=== PATIENT | female | born 1970 | race Caucasian/White ===

== ENCOUNTER → 2016-11-05 | Outpatient (CLI) | payer OTHER ==
[~2016-11-05] MED LIST: ALBU8.5H2 IH; AMLO5TAB2; BUDE10.2 IH; CYCL10TA9 PO; IBUP-15 PO; LEVA0.6320 IH; LEVO500T80; LEVO5TAB2 PO; METH4TAB PO; PANT40TA3; PNT40TEC PO; RT-ALBUINH; SUMA100T2 PO; [UNRECOGNIZED DRUG - OTHER]
--- NOTE | 2016-11-05 13:33 | Diagnostic Imaging Report ---
PROCEDURE: MR imaging cervical spine without contrast. TECHNIQUE: Multiplanar, multisequence MR imaging of the cervical spine was performed without contrast. INDICATION: Headaches, tingling in fingers and toes, worse on the right. There are no previous studies available for comparison. FINDINGS: The T2 parasagittal images do show that there has been an anterior fusion of C5, C6 and C7. The orthopedic hardware seems to be in good position. There is a slight disc bulge centrally at C7-T1. The disc flattens the ventral aspect of the thecal sac and narrows the AP diameter to 9.7 mm. There does not appear to be any significant neuroforaminal narrowing at this level. There is also a disc bulge centrally at the C6-C7 level. The AP diameter of the thecal sac at this level is narrowed to 9.0 mm. There is no significant neuroforaminal narrowing at C6-C7. At the C5-C6 level, there is no disc bulge. The AP diameter of the thecal sac measures approximately 10.1 mm. There is no neuroforaminal narrowing either. At the C4-C5 level, there is a disc bulge which flattens the ventral aspect of the thecal sac and narrows the AP diameter to 10.7 mm. There is mild narrowing of the neuroforamen bilaterally at this level. At C3-C4, the AP diameter of the thecal sac measures 10.3 mm. There is mild narrowing of the neuroforamen on the left at this level. There is no evidence for spinal stenosis or nerve root encroachment at C2-C3. The AP diameter of the thecal sac measures 10.4 mm. There is no abnormal signal arising from the osseous structures to suggest bone edema or a fracture. However, there is a small 1 x 18 mm linear area of increased signal within the cord on the T2 series. This extends from the midportion of C6 to the midportion of C7. I suspect that this is a small syrinx, is most likely a sequela of prior trauma. It would be less likely that this is due to a neoplastic process. Even so, a followup MRI cervical spine exam with intravenous contrast would be recommended to better characterize this finding. There is no paraspinal mass. The expected carotid and vertebral flow voids are evident bilaterally. IMPRESSION: 1. There are postsurgical changes consistent with fusion of C5, C6 and C7. The fused segments appear stable. 2. There is mild generalized narrowing of the thecal sac at all levels but there is no high-grade central stenosis identified. There is no significant neuroforaminal narrowing although there is mild narrowing of the neuroforamen bilaterally at C4-C5 and on the left at C3-C4. 3. There is no abnormal signal arising from the osseous structures to suggest bone edema or a fracture. 4. There does appear to be a small syrinx within the cord extending from C6-C7. This is probably posttraumatic in nature but a followup MRI cervical spine exam with intravenous contrast would be recommended to exclude an underlying neoplasm. Dictated by: Dictated on workstation # [id number]
== END ==
LOC: RAD 09:49
PROVIDERS: ATTEND Nurse Practitioner Family
DX: M54.2 Cervicalgia (principal); R20.2 Paresthesia of skin
CPT/HCPCS: 72141

== ENCOUNTER → 2016-12-01 | Outpatient (CLI) | payer OTHER ==
[~2016-12-01] MED LIST changes: +GADOBUTROL 15 MMOL/15 ML (GADAVIST) VIAL IV ONE
--- NOTE | 2016-12-01 13:40 | Diagnostic Imaging Report ---
PROCEDURE: MR imaging cervical spine with contrast. TECHNIQUE: Multiplanar and multisequence MRI of the cervical sine was performed with contrast. 11 mL of gadovist is administered intravenously. FINDINGS: This is a followup study to MRI cervical spine from 11/05/2016. On that exam a small syrinx is noted at around C7 level. This is a dedicated exam to rule out an enhancing lesion within the cord related to the syrinx. The syrinx itself is not well appreciated on this exam due to the technique that does not include unenhanced T2-weighted images. The spinal cord demonstrates no enhancing lesion or mass identified. There is susceptibility artifact seen in the bone marrow around the fusion levels C5, C6, and C7 related to the anterior fusion hardware. Otherwise the bone marrow signal demonstrate no evidence of focal lesion or mass. IMPRESSION: No evidence of an enhancing mass within the cervical segment of the spinal cord. Dictated by: Dictated on workstation # [id number]
== END ==
LOC: RAD 08:15
PROVIDERS: ATTEND Nurse Practitioner Family
DX: M54.2 Cervicalgia (principal)
CPT/HCPCS: 72142

== ENCOUNTER → 2017-08-21 | Outpatient (CLI) | payer OTHER ==
[~2017-08-21] MED LIST changes: -GADOBUTROL 15 MMOL/15 ML (GADAVIST) VIAL IV ONE
--- NOTE | 2017-08-21 10:40 | Diagnostic Imaging Report ---
Indication: Routine screening. Comparison is made with prior study from 12/11/2015 and 01/13/2013. 2-D and 3-D bilateral screening mammography was performed with CAD. Scattered fibroglandular densities are identified bilaterally. There are scattered benign-appearing calcifications in both breasts. No dominant mass or malignant-appearing microcalcifications are seen. The axillae are unremarkable. Impression: BI-RADS category 2. No mammographic features suspicious for malignancy are identified. ACR BI-RADS Category 2: Benign findings. Result letter will be mailed to the patient. Note: At least 10% of breast cancer is not imaged by mammography. Dictated by: Dictated on workstation # [id number]
== END ==
LOC: RAD 07:39
PROVIDERS: ATTEND Nurse Practitioner Family
DX: Z12.31 Encounter for screening mammogram for malignant neoplasm of breast (principal)
CPT/HCPCS: 77067

== ENCOUNTER 2017-10-26 02:55 | Emergency (ER) | payer OTHER ==
[~2017-10-26] VITALS: Ht 172.7 cm; Wt 90.7 kg
[2017-10-26] MEDS ORDERED: LACTATED RINGERS 1,000 ML IV ONE (03:05)
[2017-10-26] MEDS ORDERED: PROMETHAZINE INJ 25 MG/ML (PHENERGAN) AMP IVP STA (03:05)
[2017-10-26] MEDS ORDERED: diphenhydrAMINE 50 MG/ML INJ (BENADRYL) IV STA (03:05)
[2017-10-26 03:12] LABS: BASOPHILS # (AUTO) 0.1 10^3/uL (0.0-0.1); BASOPHILS % (AUTO) 1 % (0-10); EOSINOPHILS # (AUTO) 0.5 10^3/uL (0.0-0.3); EOSINOPHILS % (AUTO) 5 % (0-10); HEMATOCRIT 33 % (35-52); HEMOGLOBIN 10.5 G/DL (11.5-16.0); LYMPHOCYTES # (AUTO) 2.4 X 10^3 (1.0-4.0); LYMPHOCYTES % (AUTO) 24 % (12-44); MEAN CORPUSCULAR HEMOGLOBIN 27 PG (25-34); MEAN CORPUSCULAR HGB CONC 32 G/DL (32-36); MEAN CORPUSCULAR VOLUME 83 FL (80-99); MONOCYTES # (AUTO) 1.2 X 10^3 (0.0-1.0); MONOCYTES % (AUTO) 12 % (0-12); NEUTROPHILS # (AUTO) 5.7 X 10^3 (1.8-7.8); NEUTROPHILS % (AUTO) 59 % (42-75); PLATELET COUNT 353 10^3/uL (130-400); RED BLOOD COUNT 3.96 10^6/uL (4.35-5.85); RED CELL DISTRIBUTION WIDTH 14.9 % (10.0-14.5); WHITE BLOOD COUNT 9.8 10^3/uL (4.3-11.0)
[2017-10-26] MEDS ORDERED: SCOPOLAMINE 1.5 MG (TRANSDERM-SCOP) PATCH TD ONE (03:15)
[2017-10-26] MEDS ORDERED: ONDANSETRON 4 MG/2 ML (SDV) Z0FRAN IVP ONE (03:15)
[2017-10-26 03:19] LABS: PROTHROMBIN TIME PATIENT 13.1 SEC (12.2-14.7)
--- NOTE | 2017-10-26 03:25 | ED General ---
General Chief Complaint: Dizziness/Syncope Stated Complaint: DIZZY,NAUSEA Source of Information: Patient, EMS Exam Limitations: No Limitations History of Present Illness Date Seen by Provider: Oct 26, 2017 Time Seen by Provider: 02:54 Initial Comments PT ARRIVES VIA EMS FROM HOME PT HAD SUDDEN ONSET OF SEVERE DIZZINESS WHEN SHE STOOD UP--STARTED AROUND 0115 THIS AM STATES SHE STOOD UP AND BECAME SO DIZZY THAT SHE "COULDN'T MOVE, COULDN'T TALK" STATES SHE FEELS VERY WEAK ALL OVER AND HER HEAD 'FEELS FUNNY" --STATES HER HEAD "FEELS HEAVY" + NAUSEA/VOMITED X 2 WHEN MOVING TO EMS CART--EMS GAVE ZOFRAN 4 MG WITHOUT IMPROVEMENT IN NAUSEA NO VISION CHANGES NO INITIAL HEADACHE, BUT HAS MILD HEADACHE SINCE SHE VOMITED--RATES 2/10 NO CHEST PAIN/PALPITATIONS/SHORTNESS OF BREATH NO SYNCOPE NO PARESTHESIAS OR MOTOR DEFICITS SYMPTOMS MUCH WORSE WITH ANY MOVEMENTS/POSITION CHANGES, AND BETTER WITH LAYING STILL STATES SHE HAS BEEN OUT IN THE HEAT ALL DAY, ALL WEEKEND, 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 RECENTLY STARTED ON OCP'S TO REGULATE PERIODS. PCP: DR. CROFT Allergies and Home Medications Allergies Coded Allergies: No Known Drug Allergies (Unverified , 07/06/14) Home Medications Budesonide/Formoterol Fumarate 10.2 Gm Hfa.aer.ad, Unknown Dose IH BID, ( Reported) Levalbuterol HCl 0.63 Mg/3 Ml Vial.neb, Unknown Dose IH QID, (Reported) Meclizine HCl 25 Mg Tablet, 25-50 MG PO Q6H Prescribed by: KATE RESENDIZ on 10/26/17 0554 Methylprednisolone 4 Mg Tab.ds.pk, 4 MG PO UD Prescribed by: KATE RESENDIZ on 10/31/15 1836 Ondansetron 8 Mg Tab.rapdis, 8 MG PO Q4H Prescribed by: KATE RESENDIZ on 10/26/17 0554 Promethazine HCl 25 Mg Supp.rect, 25 MG RC Q4H Prescribed by: KATE RESENDIZ on 10/26/17553 Scopolamine 1 Each Patch.td72, 1 EACH TD Q72 HOURS Prescribed by: KATE RESENDIZ on 10/26/17553 Patient Home Medication List Home Medication List Reviewed: Yes Review of Systems Constitutional: see HPI, dizziness, weakness EENTM: no symptoms reported Respiratory: no symptoms reported Cardiovascular: no symptoms reported; No chest pain; edema (LEGS SWELL DUE TO STANDING ALL DAY IN HEAT); No palpitations, No syncope, No vascular heart diseas Gastrointestinal: see HPI; No abdominal pain, No diarrhea; nausea, vomiting Genitourinary: no symptoms reported Musculoskeletal: no symptoms reported Skin: no symptoms reported Psychiatric/Neurological: See HPI, Headache; Denies Numbness, Denies Paresthesia, Denies Seizure, Denies Tingling, Denies Tremors, Denies Weakness Hematologic/Lymphatic: No Symptoms Reported Immunological/Allergic: no symptoms reported Past Dbolhrc-Uyltkd-Esoqzu Hx Patient Social History Alcohol Use: Denies Use Recreational Drug Use: No Smoking Status: Never a Smoker Recent Foreign Travel: No Contact w/Someone Who Travel: No Recent Hopitalizations: No Seasonal Allergies Seasonal Allergies: No Past Medical History Surgeries: Yes (CARDIAC CATH--NO INTERVENTION 06/2014; EGD/COLONOSCOPY; CERVICAL FUSION 2012) Appendectomy, Cardiac, Section, Orthopedic, Tubal Ligation Respiratory: Yes Asthma Cardiac: Yes (RAYNAUD'S ) Chronic Edema/Swelling (WITH STANDING FOR LONG PERIODS OF TIME), Hypertension Neurological: Yes (HAD NUMBNESS AND TINGLING IN HANDS AND FEET--RESOLVED WITH AMLODIPINE) 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 Genitourinary: No Gastrointestinal: Yes Gastroesophageal Reflux, Esophagitis, Ulcer Musculoskeletal: Yes (CERVICAL FUSION 2012) Endocrine: No HEENT: No Cancer: No Psychosocial: No Integumentary: No Blood Disorders: No Family Medical History Diabetes mellitus 19 FATHER, Onset:50's - 60 Myocardial infarction 19 FATHER, Onset:50's - 60 Peripheral vascular disease 19 FATHER, Onset:50's - 60 Thyroid disease 19 MOTHER, Onset:50's - 60 Physical Exam Vital Signs Vital Signs - First Documented 10/26/17 03:05 Temp 98.5 Pulse 69 Resp 18 B/P (MAP) 189/95 (126) Pulse Ox 99 O2 Delivery Room Air Capillary Refill : Height, Weight, BMI Height: 5'8" Weight: 250lbs. 6.0oz. 113.771222yq; BMI Method:Stated General Appearance: No Apparent Distress, WD/WN HEENT: PERRL/EOMI, TMs Normal, Normal ENT Inspection, Pharynx Normal, Moist Mucous Membranes, Other (NO NYSSTAGMUS) Neck: Full Range of Motion, Normal Inspection, Non Tender, Supple; No Carotid Bruit, No JVD Respiratory: Normal Breath Sounds, No Accessory Muscle Use, No Respiratory Distress Cardiovascular: Regular Rate, Rhythm, No JVD, No Murmur, Normal Peripheral Pulses Gastrointestinal: Non Tender, Soft Extremity: Normal Capillary Refill, Normal Range of Motion, No Calf Tenderness , Pedal Edema (1+ BILATERALLY) Neurologic/Psychiatric: Alert, Oriented x3, No Motor/Sensory Deficits, Normal Mood/Affect, 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, Other (NORMAL [id number], BUT UNABLE TO DO ANY OTHER CEREBELLAR TESTING ON ARRIVAL DUE TO SEVERE DIZZINESS) Skin: Normal Color, Warm/Dry; No Diaphoresis Progress/Results/Core Measures Suspected Sepsis SIRS Temperature: Pulse: Respiratory Rate: Laboratory Tests 10/26/17 03:00: White Blood Count 9.8 Blood Pressure / Mean: Laboratory Tests 10/26/17 03:00: Creatinine 0.69, INR Comment 1.0, Platelet Count 353, Total Bilirubin 0.2 Results/Orders Lab Results Laboratory Tests Test 10/26/17 03:00 10/26/17 04:05 Range/Units White Blood Count 9.8 4.3-11.0 10^3/uL Red Blood Count 3.96 L 4.35-5.85 10^6/uL Hemoglobin 10.5 L 11.5-16.0 G/DL Hematocrit 33 L 35-52 % Mean Corpuscular Volume 83 80-99 FL Mean Corpuscular Hemoglobin 27 25-34 PG Mean Corpuscular Hemoglobin Concent 32 32-36 G/DL Red Cell Distribution Width 14.9 H 10.0-14.5 % Platelet Count 353 130-400 10^3/uL Mean Platelet Volume 10.0 7.4-10.4 FL Neutrophils (%) (Auto) 59 42-75 % Lymphocytes (%) (Auto) 24 12-44 % Monocytes (%) (Auto) 12 0-12 % Eosinophils (%) (Auto) 5 0-10 % Basophils (%) (Auto) 1 0-10 % Neutrophils # (Auto) 5.7 1.8-7.8 X 10^3 Lymphocytes # (Auto) 2.4 1.0-4.0 X 10^3 Monocytes # (Auto) 1.2 H 0.0-1.0 X 10^3 Eosinophils # (Auto) 0.5 H 0.0-0.3 10^3/uL Basophils # (Auto) 0.1 0.0-0.1 10^3/uL Prothrombin Time 13.1 12.2-14.7 SEC INR Comment 1.0 0.8-1.4 Activated Partial Thromboplast Time 26 24-35 SEC Sodium Level 139 135-145 MMOL/L Potassium Level 3.5 L 3.6-5.0 MMOL/L Chloride Level 107 98-107 MMOL/L Carbon Dioxide Level 21 21-32 MMOL/L Anion Gap 11 5-14 MMOL/L Blood Urea Nitrogen 12 7-18 MG/DL Creatinine 0.69 0.60-1.30 MG/DL Estimat Glomerular Filtration Rate > 60 BUN/Creatinine Ratio 17 Glucose Level 102 70-105 MG/DL Calcium Level 8.8 8.5-10.1 MG/DL Magnesium Level 1.9 1.8-2.4 MG/DL Total Bilirubin 0.2 0.1-1.0 MG/DL Aspartate Amino Transf (AST/SGOT) 22 5-34 U/L Alanine Aminotransferase (ALT/SGPT) 19 0-55 U/L Alkaline Phosphatase 56 40-136 U/L Troponin I < 0.30 <0.30 NG/ML Total Protein 6.5 6.4-8.2 GM/DL Albumin 3.8 3.2-4.5 GM/DL TSH Humphreys Testing 4.37 0.35-4.94 UIU/ML Serum Test, Qualitative NEGATIVE NEGATIVE Urine Color YELLOW Urine Clarity CLEAR Urine pH 5 5-9 Urine Specific [place] 1.025 H 1.016-1.022 Urine Protein 2+ H NEGATIVE Urine Glucose (UA) NEGATIVE NEGATIVE Urine Ketones NEGATIVE NEGATIVE Urine Nitrite NEGATIVE NEGATIVE Urine Bilirubin NEGATIVE NEGATIVE Urine Urobilinogen NORMAL NORMAL MG/DL Urine Leukocyte Esterase NEGATIVE NEGATIVE Urine RBC (Auto) 2+ H NEGATIVE Urine RBC 5-10 H /HPF Urine WBC NONE /HPF Urine Squamous Epithelial Cells 2-5 /HPF Urine Crystals NONE /LPF Urine Bacteria NEGATIVE /HPF Urine Casts NONE /LPF Urine Mucus MODERATE H /LPF Urine Culture Indicated NO My Orders Orders - KATE RESENDIZ DO Saline Lock/Iv-Start (10/26/17 03:05) Ekg Tracing (10/26/17 03:05) Monitor-Rhythm Ecg Trace Only (10/26/17 03:05) Ct Head Wo-R/O Stroke (10/26/17 03:05) Cbc With Automated Diff (10/26/17 03:05) Comprehensive Metabolic Panel (10/26/17 03:05) Hcg,Qualitative Serum (10/26/17 03:05) Magnesium (10/26/17 03:05) Protime With Inr (10/26/17 03:05) Partial Thromboplastin Time (10/26/17 03:05) Thyroid Analyzer (10/26/17 03:05) Troponin I (10/26/17 03:05) Ua Culture If Indicated (10/26/17 03:05) Chest 1 View, Ap/Pa Only (10/26/17 03:05) Saline Lock/Iv-Start (10/26/17 03:05) Lactated Ringers (Lr 1000 Ml Iv Solution (10/26/17 03:05) Promethazine Injection (Phenergan Injec (10/26/17 03:05) Ondansetron Injection (Zofran Injectio (10/26/17 03:15) Diphenhydramine Injection (Benadryl Inje (10/26/17 03:05) Scopolamine Patch (Transderm-Scop Patch) (10/26/17 03:15) Diazepam Injection (Valium Injection) (10/26/17 04:15) Diazepam Injection (Valium Injection) (10/26/17 04:10) Diphenhydramine Injection (Benadryl Inje (10/26/17 04:30) Diphenhydramine Injection (Benadryl Inje (10/26/17 04:45) Meclizine Tablet (Antivert Tablet) (10/26/17 04:45) Meclizine Tablet (Antivert Tablet) (10/26/17 04:48) Medications Given in ED Current Medications Medications Dose Ordered Sig/Kelsea Route Start Time Stop Time Status Last Admin Dose Admin Diazepam 5 mg ONCE ONCE IV 10/26/17 04:15 10/26/17 04:20 DC 10/26/17 04:10 5 MG Diphenhydramine HCl 25 mg ONCE ONCE IVP 10/26/17 04:30 10/26/17 04:31 DC 10/26/17 04:13 25 MG Diphenhydramine HCl 25 mg ONCE ONCE IVP 10/26/17 04:45 10/26/17 04:46 DC 10/26/17 04:16 25 MG Lactated Ringer's 1,000 ml @ 0 mls/hr Q0M ONCE IV 10/26/17 03:05 10/26/17 03:10 DC 10/26/17 03:16 999 MLS/HR Meclizine HCl 50 mg ONCE ONCE PO 10/26/17 04:45 10/26/17 04:50 DC 10/26/17 04:50 50 MG Ondansetron HCl 8 mg ONCE ONCE IVP 10/26/17 03:15 10/26/17 03:16 DC 10/26/17 03:20 8 MG Scopolamine 1.5 mg ONCE ONCE TD 10/26/17 03:15 10/26/17 03:16 DC 10/26/17 03:22 1.5 MG Vital Signs/I&O 10/26/17 10/26/17 03:05 06:24 Temp 98.5 97.6 Pulse 69 58 Resp 18 16 B/P (MAP) 189/95 (126) 147/65 Pulse Ox 99 94 O2 Delivery Room Air Room Air Capillary Refill : Progress Note : Progress Note SYMPTOMS HAD BEEN IMPROVING, AND NAUSEA COMPLETELY GONE, THEN PT GOT UP TO WALK TO BATHROOM, AND DIZZINESS BECAME WORSE AGAIN, AND PT WAS ASSISTED INTO WHEELCHAIR AND BACK ONTO ER CART. GIVEN VALIUM, WHICH CAUSED RESTLESSNESS AND THEN GIVEN BENADRYL PT EVENTUALLY ABLE TO REST AND NAUSEA IS RESOLVED AND DIZZINESS IMPROVED PT IS ANXIOUS TO GO HOME, AND PT AND FEEL COMFORTABLE WITH PT GOING HOME ECG Initial ECG Impression Date: Oct 26, 2017 Initial ECG Impression Time: 03:03 Initial ECG Rate: 61 Initial ECG Rhythm: Normal Sinus Initial ECG Impression: Nonspecific Changes Initial ECG Comparisson: Unchanged Diagnostic Imaging Comments CT HEAD--NO ACUTE PROCESS, PER [facility] VIA FAX @ 2027 CXR--NO ACUTE PROCESS, PENDING RADIOLOGIST REVIEW Reviewed: Reviewed by Me Departure Impression Primary Impression: Vertigo Additional Impression: Mild anemia Disposition: 01 HOME, SELF-CARE Condition: Improved Departure-Patient Inst. Referrals: STEWART CROFT MD (PCP/Family) Primary Care Physician Patient Instructions: Vertigo (a Type of Dizziness) (DC) Add. Discharge Instructions: LOTS OF CLEAR LIQUIDS--EQUAL AMOUNTS OF WATER AND GATORADE SLOW POSITION CHANGES TAKE MULTIVITAMIN WITH IRON DAILY FOLLOW UP WITH DR. CROFT TOMORROW IF NO BETTER, RETURN TO ER IF WORSE FOLLOW UP WITH DR. CROFT IN 1-2 WEEKS FOR FOLLOW UP ON ANEMIA All discharge instructions reviewed with patient and/or family. Voiced understanding. Scripts Meclizine HCl (Meclizine HCl) 25 Mg Tablet 25-50 MG PO Q6H for Dizziness, #30 TAB Prov: KATE RESENDIZ DO 10/26/17 Scopolamine (Transderm-Scop) 1 Each Patch.td72 1 EACH TD Q72 HOURS for Dizziness, #3 PATCH Prov: KATE RESENDIZ DO 10/26/17 Promethazine HCl (Phenergan) 25 Mg Supp.rect 25 MG RC Q4H for Nausea/Vomiting, #10 SUPP.RECT Prov: KATE RESENDIZ DO 10/26/17 Ondansetron (Zofran Odt) 8 Mg Tab.rapdis 8 MG PO Q4H for Nausea/Vomiting, #14 TAB Prov: KATE RESENDIZ DO 10/26/17 KATE RESENDIZ DO Oct 26, 2017 03:25
[2017-10-26 03:28] LABS: ALANINE AMINOTRANSFERASE 19 U/L (0-55); ALBUMIN 3.8 GM/DL (3.2-4.5); ALKALINE PHOSPHATASE 56 U/L (40-136); BILIRUBIN,TOTAL 0.2 MG/DL (0.1-1.0); BUN/CREATININE RATIO 17; CALCIUM 8.8 MG/DL (8.5-10.1); CARBON DIOXIDE 21 MMOL/L (21-32); CHLORIDE 107 MMOL/L (98-107); CREATININE SERUM 0.69 MG/DL (0.60-1.30); GFR ESTIMATED > 60; GLUCOSE 102 MG/DL (70-105); MAGNESIUM 1.9 MG/DL (1.8-2.4); POTASSIUM 3.5 MMOL/L (3.6-5.0); SODIUM 139 MMOL/L (135-145); TOTAL PROTEIN 6.5 GM/DL (6.4-8.2)
[2017-10-26 03:48] LABS: TSH (THYROID ANALYZER) 4.37 UIU/ML (0.35-4.94)
[2017-10-26] MEDS ORDERED: DIAZEPAM INJ 10 MG/2 ML (VALIUM) SYR ONE (04:10)
[2017-10-26] MEDS ORDERED: DIAZEPAM INJ 10 MG/2 ML (VALIUM) SYR IV ONE (04:15)
[2017-10-26 04:16] LABS: BILIRUBIN,URINE NEGATIVE (NEGATIVE); CLARITY,URINE CLEAR; COLOR,URINE YELLOW; GLUCOSE, URINE (UA) NEGATIVE (NEGATIVE); KETONES,URINE NEGATIVE (NEGATIVE); LEUKOCYTE ESTERASE ,URINE NEGATIVE (NEGATIVE); NITRITE,URINE NEGATIVE (NEGATIVE); PH,URINE 5 (5-9); PROTEIN,URINE 2+ (NEGATIVE); UROBILINOGEN,URINE NORMAL (NORMAL)
[2017-10-26 04:24] LABS: BACTERIA,URINE NEGATIVE /HPF
[2017-10-26] MEDS ORDERED: diphenhydrAMINE 50 MG/ML INJ (BENADRYL) IVP ONE ×2 (04:30→04:45)
[2017-10-26] MEDS ORDERED: MECLIZINE 25 MG (ANTIVERT) TAB PO ONE (04:45)
[2017-10-26] MEDS ORDERED: MECLIZINE 25 MG (ANTIVERT) TAB ONE (04:48)
[2017-10-26] MEDS ORDERED: MECL-106 PO (05:54)
[2017-10-26] MEDS ORDERED: SCOP1PAT11 TD (05:54)
[2017-10-26] MEDS ORDERED: ONDA8TAB9 PO (05:54)
[2017-10-26] MEDS ORDERED: PROM25SU43 RC (05:54)
[2017-10-26 06:24] VITALS: BP 147/65
--- NOTE | 2017-10-26 06:39 | Diagnostic Imaging Report ---
EXAM: CT HEAD WO-R/O STROKE INDICATION: Dizziness. COMPARISON: None. FINDINGS: No intracranial hemorrhage, mass effect, hydrocephalus or extra-axial fluid collection. No CT evidence of acute infarction. Osseous structures are intact. The visualized paranasal sinuses and mastoids are clear. IMPRESSION: No acute intracranial CT findings. Dictated by: Dictated on workstation # [id number]
--- NOTE | 2017-10-26 07:25 | Diagnostic Imaging Report ---
EXAM: CHEST 1 VIEW, AP/PA ONLY INDICATION: Dizziness. COMPARISON: Chest radiograph 07/06/2014. FINDINGS: Normal heart size and pulmonary vascularity. No focal pulmonary opacity, pleural effusion or pneumothorax. Postoperative changes in the lower cervical spine. No acute osseous findings. IMPRESSION: No acute cardiopulmonary findings. Dictated by: Dictated on workstation # [id number]
--- OUTSIDE RECORDS SUMMARY | 2017-10-26 20:13 | XMS REPORT | Clinical Summary ---
Author Author [facility] Organization [facility] Address Unknown Phone Unavailable Care Team Providers Care Inflatable Buildings Laminator Name Role Phone Joel Luevano MD Unavailable Tiana Will MD PCP Source Comments Some departments are not documenting in the electronic medical record. If you do not see the information that you expected, contact Release of Information in the Health Information Management department at [phone] for further assistance in locating additional records.[facility] Allergies Not on File Current Medications Not on file Active Problems Not on file Social History Tobacco Use Types Packs/Day Years Used Date Never Assessed Sex Assigned at Date Recorded Not on file Last Filed Vital Signs Not on file Plan of Treatment Health Maintenance Due Date Last Done Comments PHYSICAL (COMPREHENSIVE) 1977 EXAM PERTUSSIS VACCINE 1981 HIV SCREENING 1985 TETANUS VACCINE 1987 CERVICAL CANCER SCREENING 01/19/2000 BREAST CANCER SCREENING 2010 INFLUENZA VACCINE 12/21/2017 Results Not on filefrom Last 3 Months
--- OUTSIDE RECORDS SUMMARY | 2017-10-26 20:13 | XMS REPORT ---
Author Author RODOLFO HUNTER Organization [facility] Address [address] [place] [address] Care Team Providers Care Health Records Technology Teacher Name Role Phone RODOLFO HUNTER Unavailable PROBLEMS Unknown Problems ALLERGIES No Known Allergies ENCOUNTERS Encounter Location Date Diagnosis [facility] [id number] [place] [phone] Aug, 2017 Cough R05 and BMI 40.0-44.9, [address]41 [facility] [id number] [place] [phone] Aug, 2017 [facility] [id number] [place] [phone] Aug, 2017 BMI 40.0-44.9, adult Z68.41 [facility] [id number] [place] [phone] Apr, BMI 40.0-44.9, adult Z68.41 and Bronchitis J40 IMMUNIZATIONS No Known Immunizations SOCIAL HISTORY Never Assessed REASON FOR VISIT Flu symptoms, pt states she is feeling bad, has productve cough, has no fever and no body aches. States she took a breathing tx and tessalon pearles last night. Mela PLAN OF CARE VITAL SIGNS Height 68 in 2017-04-23 Weight 267.1 lbs 2017-04-23 Temperature 98.7 degrees Fahrenheit 2017-04-23 Heart Rate 72 bpm 2017-04-23 Respiratory Rate 22 2017-04-23 BMI 40.61 kg/m2 2017-04-23 Blood pressure systolic 158 mmHg 2017-04-23 Blood pressure diastolic 82 mmHg 2017-04-23 MEDICATIONS Medication Instructions Dosage Frequency Start Date End Date Duration Status Amlodipine Besylate 2.5 MG Orally Once a day 1 tablet 24h Active Xyzal 5 mg Orally Once a day 1 tablet in the evening 24h Apr, Sep, 30 day(s) Active Flonase 50 MCG/ACT Nasally Once a day 1 spray in each nostril 24h Apr, Active Albuterol Sulfate HFA 108 (90 Base) MCG/ACT Inhalation every 6 hrs PRN 2 puffs as needed Active PredniSONE 20 mg Orally Once a day 2 tablets 24h Apr, 6 Apr, 2017 05 days Active ProAir HFA 108 (90 Base) MCG/ACT Inhalation every 6 hrs 2 puffs as needed 6h Apr, Active Symbicort 160-4.5 MCG/ACT Inhalation Twice a day 2 puffs 12h Apr, Active Augmentin 875-125 MG Orally every 12 hrs 1 tablet 12h Apr,Apr 10 day(s) Active RESULTS No Results PROCEDURES No Known procedures INSTRUCTIONS MEDICATIONS ADMINISTERED No Known Medications MEDICAL (GENERAL) HISTORY Type Description Date Medical History HTN Medical History Cervical fusion
--- OUTSIDE RECORDS SUMMARY | 2017-10-26 20:14 | XMS REPORT | Continuity of Care Document ---
Author Author [facility] Organization [facility] Address Unknown Phone Unavailable Allergies Active Description Code Type Severity Reaction Onset Reported/Identified Relationship to Patient Clinical Status Yes No Known Drug Allergies [id number] Drug Allergy Unknown N/A 07/06/2014 Medications There is no data. Problems Date Dx Coded Attending Type Code Diagnosis Diagnosed By 07/06/2014 ROSA MARIA BRODERICK, NIKITA Leggett Ot 786.50 CHEST PAIN NOS 07/07/2014 NATHAN MARKS MD Ot 401.9 HYPERTENSION NOS 07/07/2014 NATHAN MARKS MD Ot 414.01 CORONARY ATHEROSCLEROSIS OF [place] CORON 07/07/2014 NATHAN MARKS MD Ot 530.10 ESOPHAGITIS NOS 07/07/2014 NATHAN MARKS MD Ot 530.81 ESOPHAGEAL REFLUX 07/07/2014 NATHAN MARKS MD Ot 535.40 OTH SPECIFIED GASTRITIS,W/O MENTION OF H 07/07/2014 NATHAN MARKS MD Ot V17.49 FAMILY HISTORY OF OTHER CARDIOVASCULAR D 07/07/2014 NATHAN MARKS MD Ot 401.9 07/07/2014 NATHAN MARKS MD Ot 414.01 07/07/2014 NATHAN MARKS MD Ot V17.49 08/17/2014 NATHAN MARKS MD Ot 401.9 08/17/2014 NATHAN MARKS MD Ot 414.01 08/17/2014 NATHAN MARKS MD Ot 530.10 08/17/2014 NATHAN MARKS MD Ot 530.81 08/17/2014 NATHAN MARKS MD Ot 535.40 08/17/2014 NATHAN MARKS MD Ot V17.49 08/17/2014 NATHAN MARKS MD Ot 401.9 08/17/2014 NATHAN MARKS MD Ot 414.01 08/17/2014 NATHAN MARKS MD Ot 530.10 08/17/2014 NATHAN MARKS MD Ot 530.81 08/17/2014 SELINA BRODERICK, NATHAN J Ot 535.40 08/17/2014 SELINA BRODERICK, NATHAN Wall Ot V17.49 10/31/2015 MARTÍN DO, KATE K Ot J20.9 ACUTE BRONCHITIS, UNSPECIFIED 10/31/2015 MARTÍN DO, KATE K Ot J45.901 UNSPECIFIED ASTHMA WITH (ACUTE) EXACERBA 11/06/2015 MARTÍN DO, KATE K Ot J20.9 ACUTE BRONCHITIS, UNSPECIFIED 11/06/2015 MARTÍN DO, KATE K Ot J45.901 UNSPECIFIED ASTHMA WITH (ACUTE) EXACERBA 11/15/2015 MARTÍN DO, KATE K Ot J20.9 ACUTE BRONCHITIS, UNSPECIFIED 11/15/2015 MARTÍN DO, KATE K Ot J45.901 UNSPECIFIED ASTHMA WITH (ACUTE) EXACERBA 12/12/2015 LANG BRODERICK, STEWART Irwin Ot Z12.31 ENCNTR SCREEN MAMMOGRAM FOR MALIGNANT NE 02/08/2016 STEWART CROFT MD Ot Z12.31 ENCNTR SCREEN MAMMOGRAM FOR MALIGNANT NE 02/11/2016 JAM TRIPATHI STRATEGIC COMMUNICATIONS MANAGER Ot N63 UNSPECIFIED LUMP IN BREAST 02/11/2016 JAM TRIPATHI STRATEGIC COMMUNICATIONS MANAGER Ot N63 UNSPECIFIED LUMP IN BREAST 10/20/2016 STEWART CROFT MD Ot Z12.31 ENCNTR SCREEN MAMMOGRAM FOR MALIGNANT NE 10/20/2016 JAM TRIPATHI STRATEGIC COMMUNICATIONS MANAGER Ot N63 UNSPECIFIED LUMP IN BREAST 12/02/2016 JAM TIRPATHI STRATEGIC COMMUNICATIONS MANAGER Ot M54.2 CERVICALGIA 06/16/2017 STEWART CROFT MD Ot Z12.31 ENCNTR SCREEN MAMMOGRAM FOR MALIGNANT NE 06/16/2017 JAM TRIPATHI STRATEGIC COMMUNICATIONS MANAGER Ot N63 UNSPECIFIED LUMP IN BREAST 06/16/2017 JAM TRIPATHI STRATEGIC COMMUNICATIONS MANAGER Ot M54.2 CERVICALGIA 06/16/2017 JAM TRIPATHI STRATEGIC COMMUNICATIONS MANAGER Ot R20.2 PARESTHESIA OF SKIN 06/16/2017 JAM TRIPATHI STRATEGIC COMMUNICATIONS MANAGER Ot M54.2 CERVICALGIA 06/19/2017 STEWART CROFT MD Ot Z12.31 ENCNTR SCREEN MAMMOGRAM FOR MALIGNANT NE 06/19/2017 JAM TRIPATHI STRATEGIC COMMUNICATIONS MANAGER Ot N63 UNSPECIFIED LUMP IN BREAST 06/19/2017 BHUMI, JAM M STRATEGIC COMMUNICATIONS MANAGER Ot M54.2 CERVICALGIA 06/19/2017 JAM TRIPATHI STRATEGIC COMMUNICATIONS MANAGER Ot R20.2 PARESTHESIA OF SKIN 06/19/2017 JAM TRIPATHI Maxime STRATEGIC COMMUNICATIONS MANAGER Ot M54.2 CERVICALGIA 07/30/2017 STEWART CROFT MD Ot Z12.31 ENCNTR SCREEN MAMMOGRAM FOR MALIGNANT NE 07/30/2017 JAM TRIPATHI Maxime STRATEGIC COMMUNICATIONS MANAGER Ot N63 UNSPECIFIED LUMP IN BREAST 07/30/2017 JAM TRIPATHI STRATEGIC COMMUNICATIONS MANAGER Ot M54.2 CERVICALGIA 07/30/2017 JAM TRIPATHI STRATEGIC COMMUNICATIONS MANAGER Ot R20.2 PARESTHESIA OF SKIN 07/30/2017 JAM TRIPATHI STRATEGIC COMMUNICATIONS MANAGER Ot M54.2 CERVICALGIA 08/25/2017 JAM TRIPATHI STRATEGIC COMMUNICATIONS MANAGER Ot Z12.31 ENCNTR SCREEN MAMMOGRAM FOR MALIGNANT NE 08/25/2017 JAM TRIPATHI STRATEGIC COMMUNICATIONS MANAGER Ot Z12.31 ENCNTR SCREEN MAMMOGRAM FOR MALIGNANT NE Procedures There is no data. Results There is no data. Encounters ACCT No. Visit Date/Time Discharge Status Pt. Type Provider Facility Loc./Unit Complaint [id number] 08/21/2017 07:39:00 08/21/2017 23:59:59 CLS Outpatient JAM TRIPATHI APRN [facility] RAD SCREENING [id number] 12/01/2016 08:15:00 12/01/2016 23:59:59 CLS Outpatient JAM TRIPATHI APRN [facility] RAD M54.2 [id number] 11/05/2016 09:49:00 11/05/2016 23:59:59 CLS Outpatient JAM TRIPATHI STRATEGIC COMMUNICATIONS MANAGER [facility] RAD M54.2 NECK PAIN [id number] 02/08/2016 08:06:00 02/08/2016 23:59:59 CLS Outpatient JAM TRIPATHI APRN [facility] RAD LT BREAST NODULE [id number] 12/11/2015 07:35:00 12/11/2015 23:59:59 CLS Outpatient STEWART CROFT MD [facility] RAD SCREENING [id number] 10/31/2015 17:58:00 10/31/2015 18:45:00 DIS Emergency KATE RESENDIZ DO [facility] ER CONGESTION,SOA [id number] 07/06/2014 11:24:00 07/07/2014 15:50:00 DIS Outpatient SELINA BRODERICK, NATHAN Wall [facility] CATH CP [id number] 07/06/2014 07:47:00 07/06/2014 09:50:00 DIS Emergency ROSA MARIA BRODERICK, NIKITA Leggett [facility] ER CHEST PAIN [id number] 12/15/2013 09:01:00 12/15/2013 23:59:59 CLS Outpatient [id number] 09/02/2017 10:40:00 09/02/2017 23:59:59 CLS Outpatient [facility]
== END 2017-10-26 06:28 | disposition home or self-care (01) ==
LOC: EDUNIT# 02:55 → ER 02:57
DX: R42 Dizziness and giddiness (principal); D64.9 Anemia, unspecified; J45.909 Unspecified asthma, uncomplicated; I10 Essential (primary) hypertension; K21.9 Gastro-esophageal reflux disease without esophagitis; Z82.49 Family history of ischemic heart disease and other diseases of the circulatory system; Z87.19 Personal history of other diseases of the digestive system; Z79.52 Long term (current) use of systemic steroids; Z98.1 Arthrodesis status; Z90.89 Acquired absence of other organs; Z87.59 Personal history of other complications of pregnancy, childbirth and the puerperium; Z98.51 Tubal ligation status
CPT/HCPCS: 36415; 70450; 71045; 80053; 81000; 83735; 84443; 84484; 84703; 85025; 85610; 85730; 93005; 93041; 96374; 96375; 96376

== ENCOUNTER → 2017-11-03 | Outpatient (CLI) | payer OTHER ==
[~2017-11-03] MED LIST changes: +MECL-106 PO; +ONDA8TAB9 PO; +PROM25SU43 RC; +SCOP1PAT11 TD
--- NOTE | 2017-11-03 15:57 | Diagnostic Imaging Report ---
PROCEDURE: MR imaging of the brain without contrast. TECHNIQUE: Multiplanar, multisequence MR imaging of the brain was performed without contrast. INDICATION: Persistent dizziness and nausea. COMPARISON: Comparison is made with prior head CT from 10/26/2017. FINDINGS: The ventricles and sulci are within normal limits. No sulcal effacement or midline shift is seen. No acute intra-axial or extra-axial hemorrhage is identified. Corpus callosum is unremarkable. The sella and parasellar structures are unremarkable. The normal expected flow-voids within the carotid siphons are seen. There is no diffusion restriction identified to suggest acute ischemia. IMPRESSION: Unremarkable noncontrast MRI of the brain. No acute features detected. Dictated by: Dictated on workstation # [id number]
== END ==
LOC: RAD 15:05
PROVIDERS: ATTEND Family Medicine
DX: H81.13 Benign paroxysmal vertigo, bilateral (principal); R42 Dizziness and giddiness; R11.0 Nausea
CPT/HCPCS: 70551

== ENCOUNTER → 2019-07-06 | Outpatient (CLI) | payer OTHER ==
[~2019-07-06] MED LIST changes: -AMLO5TAB2; +AMLO5TAB9; -MECL-106 PO; +MECL-149 PO
--- NOTE | 2019-07-06 11:29 | Diagnostic Imaging Report ---
PROCEDURE: MR imaging cervical spine without contrast. TECHNIQUE: Multiplanar, multisequence MR imaging of the cervical spine was performed without contrast. DATE: July 06, 2019. COMPARISON: MRI cervical spine December 01, 2016. INDICATION: 49-year-old female, neck pain. FINDINGS: There is anterior cervical spinal fusion hardware spanning C5 through C7. There is hardware related artifact. There is no evidence of a diffuse marrow infiltrating or replacing process. There is no identified focal bone lesion. There is a focal central area of increased T2 signal in the spinal cord at the level of C7 measuring approximately 1 mm in diameter which may relate to a very small caliber syrinx. Additional evaluation of the imaged portions of the spinal cord is unremarkable. The disc heights are well preserved. C2-C3: There is no disc bulge. The uncovertebral and facet joints are unremarkable. There is no foraminal narrowing. There is no spinal canal stenosis. C3-C4: There is no disc bulge. The uncovertebral and facet joints are unremarkable. There is no foraminal narrowing. There is no spinal canal stenosis. C4-C5: There is no disc bulge. The uncovertebral and facet joints are unremarkable. There is no foraminal narrowing. There is no spinal canal stenosis. C5-C6: There is no disc bulge. The uncovertebral and facet joints are unremarkable. There is no foraminal narrowing. There is no spinal canal stenosis. C6-C7: There is no disc bulge. The uncovertebral and facet joints are unremarkable. There is no foraminal narrowing. There is no spinal canal stenosis. C7-T1: There is no disc bulge. The uncovertebral and facet joints are unremarkable. There is no foraminal narrowing. There is no spinal canal stenosis. IMPRESSION: 1. Focal increased signal within the central aspect of the spinal cord at the level of C7 which measures 1 mm in diameter. This may relate to a very small syrinx. This is unchanged since the November 05, 2016 MRI. Additional evaluation of the imaged spinal cord is unremarkable. 2. Anterior cervical spinal fusion hardware spanning C5 through C7. 3. No current disc protrusion or extrusion. No foraminal or spinal stenosis at the cervical spine levels. 4. No bone marrow signal abnormality. Dictated by: Dictated on workstation # [id number]
== END ==
LOC: RAD 10:03
PROVIDERS: ATTEND Nurse Practitioner Family
DX: M54.2 Cervicalgia (principal); Z98.1 Arthrodesis status
CPT/HCPCS: 72141

== ENCOUNTER → 2019-10-21 | Outpatient (CLI) | payer OTHER ==
--- NOTE | 2019-10-21 15:39 | Diagnostic Imaging Report ---
EXAMINATION: Magnetic resonance imaging of the left shoulder without contrast. DATE: October 21, 2019. COMPARISON: None. HISTORY: 49-year-old female, left shoulder pain. History of fall two weeks ago. TECHNIQUE: Magnetic Resonance Imaging sequences were performed of the shoulder without contrast. FINDINGS: ROTATOR CUFF, LIGAMENTS, TENDONS, AND MUSCLES: The supraspinatus, infraspinatus, teres minor, and subscapularis tendons and muscles are intact. There is normal rotator cuff muscle bulk and signal. LONG HEAD OF BICEPS: The biceps labral attachment and long head of the biceps tendon is intact. The long head of the biceps tendon is normally positioned within the bicipital groove. GLENOHUMERAL JOINT: The humeral head is well positioned relative to the glenoid. There is a ganglion cyst or paralabral cyst adjacent to the anterosuperior labrum, measuring 13 x 10 x 15 mm in size. There is no definite discrete adjacent labral tear on non-arthrogram assessment. The articular cartilage is grossly intact. There is no joint effusion. ACROMIOCLAVICULAR JOINT: The acromioclavicular joint is normally aligned. The coracoclavicular and coracoacromial ligaments are intact. There are very mild acromioclavicular degenerative changes without undersurface osteophyte. BONE: The bones all have normal configuration. The bone marrow signal is within normal limits. Specifically, negative for fracture, osteomyelitis, osteonecrosis, or marrow replacing process. BURSAE AND SOFT TISSUES: The bursae and soft tissue surrounding the shoulder are unremarkable. IMPRESSION: 1. Ganglion cyst versus a paralabral cyst adjacent to the anterosuperior labrum, measuring 13 x 10 x 15 mm in size, without definite discrete adjacent labral tear on non-arthrogram assessment. If there is high clinical concern for superior labral tear, further evaluation with MRI arthrogram of the left shoulder is recommended. 2. Intact rotator cuff and proximal long head of biceps tendon. 3. Very mild acromioclavicular degenerative changes without undersurface osteophyte. 4. No acute fracture, bone contusion or evidence of osteonecrosis. Dictated by: Dictated on workstation # [id number]
--- NOTE | 2019-10-21 20:22 | Diagnostic Imaging Report ---
EXAMINATION: Magnetic resonance imaging of the left knee without intravenous contrast DATE: October 21, 2019. COMPARISON: None. INDICATION: 49-year-old female, fall with twisting injury two weeks ago. Left knee pain. TECHNIQUE: Multiplanar, multisequence non contrast enhanced MR imaging was accomplished. FINDINGS: MENISCI: There is an oblique tear involving the anterior horn, body and posterior horn of the medial meniscus. The lateral meniscus is intact. LIGAMENTS AND TENDONS: The anterior and posterior cruciate ligaments are intact. The medial collateral ligament is intact. The iliotibial band, mid third lateral capsular ligament, fibular collateral ligament, biceps femoris tendon and conjoined tendon are intact. The quadriceps tendon and patella ligament are intact. JOINT: The articular cartilage surfaces are intact. There is a trace knee joint effusion. There is no identified intra-articular body or prominent synovitis. BONE: There is unremarkable bone marrow signal. Specifically, negative for fracture, osteomyelitis, osteonecrosis, or marrow replacing process. BURSAE AND SOFT TISSUES: No Bakers cyst. IMPRESSION: 1. Oblique tear involving the anterior horn, body and posterior horn of the medial meniscus. 2. Intact lateral meniscus. 3. Intact anterior and posterior cruciate ligaments. Additional ligaments and tendons are intact. 4. No acute fracture or bone contusion. 5. Intact articular cartilage. Trace knee joint effusion. Dictated by: Dictated on workstation # [id number]
== END ==
LOC: RAD 13:15
PROVIDERS: ATTEND Nurse Practitioner Family
DX: M75.02 Adhesive capsulitis of left shoulder (principal); M75.102 Unspecified rotator cuff tear or rupture of left shoulder, not specified as traumatic; M75.32 Calcific tendinitis of left shoulder; S83.212A Bucket-handle tear of medial meniscus, current injury, left knee, initial encounter; M25.462 Effusion, left knee; M19.012 Primary osteoarthritis, left shoulder; S83.242A Other tear of medial meniscus, current injury, left knee, initial encounter; W19.XXXA Unspecified fall, initial encounter
CPT/HCPCS: 73221; 73721

== ENCOUNTER → 2020-02-10 | Outpatient (CLI) | payer OTHER ==
[~2020-02-10] MED LIST changes: +AMLO-250; -AMLO5TAB9; -PANT40TA3; +PANT40TA52
--- NOTE | 2020-02-10 11:21 | Diagnostic Imaging Report ---
INDICATION: Routine screening. COMPARISON: Prior mammograms of 08/21/2017 and 12/11/2015. TECHNIQUE: 2D and 3D bilateral screening mammography was performed with CAD. FINDINGS: Scattered fibroglandular densities are identified bilaterally. Benign calcifications are again noted. No mass or malignant appearing microcalcifications are seen. The axillae are unremarkable. IMPRESSION: No mammographic features suspicious for malignancy are identified. ACR BI-RADS Category 2: Benign findings. Result letter will be mailed to the patient. Note: At least 10% of breast cancer is not imaged by mammography. Dictated by: Dictated on workstation # [id number]
== END ==
LOC: RAD 08:15
PROVIDERS: ATTEND Family Medicine
DX: Z12.31 Encounter for screening mammogram for malignant neoplasm of breast (principal)
CPT/HCPCS: 77063; 77067

== ENCOUNTER 2020-02-28 14:30 | Outpatient (RCR) | payer OTHER ==
[~2020-02-28] VITALS: Ht 172.7 cm; Wt 127.7 kg
[~2020-02-28 14:30] MED LIST changes: -PANT40TA52; +PANT40TA52 PO; -RT-ALBUINH; +RT-ALBUINH IH
[2020-02-28] MEDS ORDERED: AMLO-251 PO (15:17)
[2020-02-28] MEDS ORDERED: SPIR25TA5 PO (15:18)
== END 2020-02-28 15:55 | disposition home or self-care (01) ==
LOC: PREOP 14:30
PROVIDERS: ATTEND Internal Medicine
DX: Z01.812 Encounter for preprocedural laboratory examination (principal); R10.13 Epigastric pain; R11.0 Nausea; Z20.828 Contact with and (suspected) exposure to other viral communicable diseases
CPT/HCPCS: 87635

== ENCOUNTER 2020-03-02 08:08 | Day surgery (SDC) | payer OTHER ==
--- NOTE | 2020-02-21 06:34 | HISTORY AND PHYSICAL ---
DATE OF SERVICE: COLONOSCOPY HISTORY AND PHYSICAL HISTORY OF PRESENT ILLNESS: The patient is a 50-year-old white female referred by Dr. Will for diagnostic EGD and screening colonoscopy. She reports over the past two months, she has been having increased epigastric pain and chronic low level nausea; the nausea does not appear to be impacted by food or food timing. The epigastric pain is initially better after eating and gets worse several hours later. She denies being awoken from sleep with pain and has had no melena or bright red blood per rectum. She reports that there has been weight gain this year over 10 pounds. PAST MEDICAL HISTORY: Significant for undergoing cardiac catheterization for chest pain in 2014. This was negative. A GI source was suspected. The patient underwent EGD per Dr. Butler and was found to have what he termed as grade III erosive esophagitis. The patient was started on proton pump inhibitor therapy and continues to take Protonix 40 mg daily. The patient does have a history of hypertension and other medications include amlodipine 10 mg daily and spironolactone 25 mg daily. FAMILY HISTORY: She is not aware of any family history for GI tract malignancy. PAST SURGICAL HISTORY: She had cervical fusion surgery in 2012. SOCIAL HISTORY: The patient reports no past smoking history and rare alcohol consumption, low volume. REVIEW OF SYSTEMS: CONSTITUTIONAL: She does report some weight gain roughly 10 pounds over the past year with no night sweats, chills or fever. CARDIOVASCULAR: She does report some lower precordial chest discomfort. Denies orthopnea, PND, pedal edema or dyspnea on exertion. PULMONARY: The patient denies cough or wheezing. GASTROINTESTINAL: As noted in the HPI. PHYSICAL EXAMINATION: GENERAL: Reveals pleasant overweight white female in no acute distress. VITAL SIGNS: Weight 281 pounds, blood pressure 132/64. HEENT: Unremarkable. NECK: Revealed no JVD, adenopathy or bruits. CHEST: Clear to auscultation. CARDIOVASCULAR: Revealed a regular rate and rhythm without murmur, S3 or S4. ABDOMEN: Soft, supple without mass or organomegaly. There is some mild epigastric discomfort to palpation without rebound or guarding. Nunez sign is negative. Bowel sounds are positive. ASSESSMENT AND PLAN: The patient is being set up for diagnostic EGD due to epigastric pain and nausea with history of erosive esophagitis. Screening colonoscopy will be performed at that time as well under Diprivan based anesthesia. Prep instructions with the Suprep kit were given and questions were answered. Electronic medical record was reviewed. Forty-five minutes care time spent, not including dictation time. I thank you for the referral of this pleasant lady. Job ID: [id number] DocumentID: [id number] Dictated Date: 02/15/2020 15:40:40 Insulation Power Unit Tender Date: 02/15/2020 15:54:51 Dictated By: GELA HEAD MD
[~2020-03-02] VITALS: Ht 172.7 cm; Wt 127.7 kg
[~2020-03-02 08:08] MED LIST changes: +AMLO-251 PO; +SPIR25TA5 PO
[2020-03-02 08:10] VITALS: BP 158/78
[2020-03-02] MEDS ORDERED: D5 LR IV SOLUTION 1,000 ML IV ONE (08:15)
[2020-03-02] MEDS ORDERED: PROPOFOL INJECTION 50 ML IV ONE ×2 (08:32→09:08)
[2020-03-02] MEDS ORDERED: MIDAZOLAM 2 MG/2 ML (VERSED) VIAL ONE (08:33)
--- NOTE | 2020-03-02 08:37 | Pre-Op Note & Conscious Sedat ---
Pre-Operative Progress Note H&P Reviewed The H&P was reviewed, patient examined and no changes noted. Date H&P Reviewed: Mar 02, 2020 Time H&P Reviewed: 08:37 Conscious Sedation Pre-Proced ASA Score 2 For ASA 3 and 4: Consider anesthesia and medical clearance. Also, for patients with a history of failed moderate sedation consider anesthesia. Airway Lungs Heart ASA score ASA 1: a normal healthy patient ASA 2: a patient with a mild systemic disease (mid diabetes, controlled hypertension, obesity ASA 3: a patient with a severe systemic disease that limits activity (angina, COPD, prior Myocardial infarction) ASA 4: a patient with an incapacitating disease that is a constant threat to life (CHF, renal failure) ASA 5: a moribund patient not expected to survive 24 hrs. (ruptured aneurysm) ASA 6: a declared brain- patient whose organs are being harvested. For emergent operations, add the letter E after the classification Mallampati Classification Grade 2 Sedation Plan Analgesia, Amnesia, Plan communicated to team members, Discussed options with patient/fam, Discussed risks with patient/fam The patient is an appropriate candidate to undergo the planned procedure, sedation, and anesthesia. The patient immediately re-assessed prior to indication. GELA HEAD MD Mar 02, 2020 08:37
[2020-03-02] MEDS: HURRICAINE EXT TUBE (BENZOCAINE) XX PRN ×2 (08:52→09:02)
[2020-03-02] MEDS ORDERED: LIDOCAINE JELLY 2% 6 ML SYRINGE ONE (09:00)
[2020-03-02] MEDS ORDERED: HURRICAINE EXT TUBE (BENZOCAINE) ONE (09:00)
[2020-03-02 09:30] VITALS: BP 112/55
[2020-03-02 09:35] VITALS: BP 116/59
[2020-03-02 09:40] VITALS: BP 115/59
[2020-03-02] MEDS ORDERED: LIDOCAINE JELLY 2% (XYLOCAINE) 5 ML TUBE TOP ONE (09:45)
[2020-03-02 10:15] VITALS: BP 129/64
[2020-03-02 10:25] VITALS: BP 129/64
--- NOTE | 2020-03-02 10:25 | NUR ---
HAS TAKEN PO FLUIDS WITHOUT PROBLEM. ALERT, DENIES COMPLAINTS. STATES SHE IS READY FOR DISMISSAL.
--- NOTE | 2020-03-02 11:06 | Anesthesia-General Post-Op ---
MAC Patient Condition Mental Status/LOC: Same as Preop Cardiovascular: Satisfactory Nausea/Vomiting: Absent Respiratory: Satisfactory Pain: Controlled Complications: Absent Post Op Complications Complications None Follow Up Care/Instructions Patient Instructions None needed. Anesthesiology Discharge Order Discharge Order Patient is doing well, no complaints, stable vital signs, no apparent adverse anesthesia problems. No complications reported per nursing. LITZY WILEY CRNA Mar 02, 2020 11:05
--- NOTE | 2020-03-02 19:42 | OPERATIVE REPORT ---
DATE OF SERVICE: PANENDOSCOPY SUMMARY INDICATION FOR THE PROCEDURE: Panendoscopy was performed for screening colonoscopy purposes and chronic nausea and epigastric pain for EGD. DESCRIPTION OF PROCEDURE: The patient was placed in the left lateral decubitus position. The upper endoscope was inserted in the oral cavity and under direct visualization, esophagus was intubated. The endoscope was passed down the esophagus through the stomach and second portion of the duodenum. Careful inspection was made as the endoscope was withdrawn. FINDINGS: The posterior pharynx, epiglottis, arytenoid aperture and true and false vocal folds were unremarkable to visual inspection. The proximal, mid and distal esophagus were unremarkable. There was no evidence for erosive esophagitis, rings, webs, strictures or diverticulum. The cardia and fundus of the stomach were unremarkable. No evidence for hiatal hernia was noted. Present in the antrum were several small erosions with 1 questionable shallow area of ulceration. Biopsy was obtained and submitted for histopathology and Helicobacter. No significant background erythema was noted. The pylorus, pyloric channel, duodenal bulb and second portion of duodenum were unremarkable with normal villous appearing architecture of the visualized small intestine. ASSESSMENT: Several small antral erosions and one questionable small shallow ulceration were noted. Biopsies were obtained and submitted for histopathology and Helicobacter. This is otherwise normal EGD. It is questionable as to whether or not findings would explain her nausea. As the patient has risk factors for cholecystitis, she was set up for abdominal sonography after discussion. DESCRIPTION OF PROCEDURE: The patient was placed in the left lateral decubitus position. Prior to undergoing colonoscopy, digital rectal evaluation was performed. Anal sphincter tone was normal and the perianal reflexes intact. No abnormalities were noted on digital inspection of the anal canal or distal rectal vault. The colonoscope was then inserted into the rectum and under direct visualization advanced to cecum. The cecum was identified by identification of the ileocecal valve and cecal strap as well as appendiceal orifice. Photographic documentation was obtained. Careful inspection was made as colonoscope withdrawn. FINDINGS: There was no evidence for internal or external hemorrhoids and the rectum, sigmoid colon, descending colon, transverse colon, ascending colon and cecum were unremarkable with no evidence for neoplasia, diverticular disease or other abnormality. ASSESSMENT: Normal colonoscopy to the cecum. As the patient is not aware of any family history of colon cancer, we would advocate consideration for repeat screening colonoscopy in 10 years. Job ID: [id number] DocumentID: [id number] Dictated Date: 03/02/2020 11:18:16 Tannery Gummer Date: 03/02/2020 19:40:51 Dictated By: GELA HEAD MD MTDD
== END 2020-03-02 10:25 | disposition home or self-care (01) ==
LOC: ENDO 08:08
PROVIDERS: ATTEND Internal Medicine
DX: Z12.11 Encounter for screening for malignant neoplasm of colon (principal); R10.13 Epigastric pain; I10 Essential (primary) hypertension; J45.909 Unspecified asthma, uncomplicated; K21.9 Gastro-esophageal reflux disease without esophagitis; Z79.899 Other long term (current) drug therapy; Z87.11 Personal history of peptic ulcer disease
CPT/HCPCS: 84703; 88305

== ENCOUNTER → 2020-03-06 | Outpatient (CLI) | payer OTHER ==
--- NOTE | 2020-03-06 09:20 | Diagnostic Imaging Report ---
PROCEDURE: US Gallbladder. TECHNIQUE: Multiple real-time grayscale images were obtained over the right upper quadrant in various projections. INDICATION: Epigastric pain There are no prior studies available for comparison. There is no evidence for cholelithiasis or acute cholecystitis and the common bile duct is not dilated. The liver is borderline enlarged and the liver is more echogenic than usually seen. This appearance does suggest fatty metamorphosis. There is no focal mass involving the liver and the biliary tree is not abnormally dilated. Spectral and color-flow imaging of the portal vein shows the vein is patent. The right kidney, the aorta and inferior vena cava show no sign of an acute abnormality. The body and head of the pancreas are unremarkable but the tail is obscured by bowel gas. There is no mass or free fluid collection evident. IMPRESSION: 1. There is no acute abnormality of the right upper quadrant. 2. If clinical concern regarding an underlying abnormality of the gallbladder persists, then a nuclear medicine hepatobiliary scan would be recommended for further study. 3. There is borderline hepatomegaly and fatty metamorphosis of the liver. Dictated by: Dictated on workstation # [id number]
== END ==
LOC: RAD 08:30
PROVIDERS: ATTEND Internal Medicine
DX: K76.0 Fatty (change of) liver, not elsewhere classified (principal); Z20.828 Contact with and (suspected) exposure to other viral communicable diseases
CPT/HCPCS: 76705

== ENCOUNTER → 2020-03-09 | Outpatient (CLI) | payer OTHER ==
[~2020-03-09] MED LIST changes: +CATHETER FLUSH 10 ML SYR IV PRN
--- NOTE | 2020-03-09 16:18 | Diagnostic Imaging Report ---
INDICATION: Right upper quadrant abdominal pain. EXAMINATION: Patient was administered 5.1 mCi technetium 99m Choletec intravenously and imaging over the abdomen was performed. At 1 hour patient ingested 8 ounces of Ensure and the gallbladder ejection fraction was calculated. FINDINGS: There is homogeneous uptake of activity by the liver with prompt excretion of activity into the common duct and gallbladder. There is normal passage of activity into the small bowel. Gallbladder ejection fraction is abnormally low at 25%. Normal values are 35% or greater. IMPRESSION: 1. Patent cystic duct and common bile duct. 2. Low gallbladder ejection fraction of 25%. Dictated by: Dictated on workstation # [id number]
== END ==
LOC: CARD 11:32
PROVIDERS: ATTEND Family Medicine
DX: R10.11 Right upper quadrant pain (principal); R11.2 Nausea with vomiting, unspecified
CPT/HCPCS: 78227; A9537

== ENCOUNTER 2020-03-20 05:31 | Outpatient (RCR) | payer OTHER ==
[~2020-03-20] VITALS: Ht 172 cm; Wt 126.3 kg
[~2020-03-20 05:31] MED LIST changes: -CATHETER FLUSH 10 ML SYR IV PRN
== END 2020-03-20 13:08 | disposition home or self-care (01) ==
LOC: PREOP 05:31
PROVIDERS: ATTEND Surgery
DX: Z01.818 Encounter for other preprocedural examination (principal); K82.8 Other specified diseases of gallbladder; Z20.828 Contact with and (suspected) exposure to other viral communicable diseases
CPT/HCPCS: 87635

== ENCOUNTER 2020-03-22 10:57 | Day surgery (SDC) | payer OTHER ==
[~2020-03-22] VITALS: Ht 172 cm; Wt 126.3 kg
[2020-03-22] VITALS (12 sets, daily range): BP systolic 130–180; BP diastolic 58–80
[2020-03-22] MEDS ORDERED: ROCURONIUM 10 MG/ML 5 ML SYRINGE IV ONE (11:12)
[2020-03-22] MEDS ORDERED: LIDOCAINE PF 2% 5 ML (XYLOCAINE) VIAL ONE (11:12)
[2020-03-22] MEDS ORDERED: SEVOFLURANE (ULTANE) 15 ML INHAL SOLN ONE ×2 (11:12→12:49)
[2020-03-22] MEDS ORDERED: proPOfol 200 MG/20 ML (DIPRIVAN) VIAL IV ONE (11:12)
[2020-03-22] MEDS ORDERED: ONDANSETRON 4 MG/2 ML (SDV) Z0FRAN ONE (11:12)
[2020-03-22] MEDS ORDERED: MIDAZOLAM 2 MG/2 ML (VERSED) VIAL ONE ×2 (11:13→12:10)
[2020-03-22] MEDS ORDERED: fentaNYL INJECTION 100 MCG/2 ML AMP ONE ×2 (11:14→12:56)
[2020-03-22] MEDS ORDERED: CATHETER FLUSH 10 ML SYR IV PRN (11:15)
[2020-03-22] MEDS ORDERED: ceFAZolin 2 GM IV Premixed 50 ML IV ONE (11:15)
[2020-03-22] MEDS ORDERED: LACTATED RINGERS 1,000 ML IV PRN (11:15)
--- NOTE | 2020-03-22 11:26 | Progress Note-Pre Operative ---
Pre-Operative Progress Note H&P Reviewed The H&P was reviewed, patient examined and no changes noted. Date Seen by Provider: Mar 22, 2020 Time Seen by Provider: 11:00 Date H&P Reviewed: Mar 22, 2020 Time H&P Reviewed: 11:00 Pre-Operative Diagnosis: sx biliary dyskinesia DYAN JEAN MD Mar 22, 2020 11:26
[2020-03-22] MEDS ORDERED: HYDR-3817 PO (11:27)
[2020-03-22] MEDS ORDERED: morphine INJ 10 MG/ML 1ML (SYR OR VIAL) IVP PRN ×2 (11:30)
[2020-03-22] MEDS ORDERED: oxyCODONE/APAP 5/325MG (PERCOCET 5) TABLET PO PRN (11:30)
[2020-03-22] MEDS ORDERED: ONDANSETRON 4 MG/2 ML (SDV) Z0FRAN IVP PRN ×2 (11:30→13:00)
[2020-03-22] MEDS ORDERED: ACETAMINOPHEN 325 MG TABLET PO PRN (11:30)
--- NOTE | 2020-03-22 11:42 | Discharge Inst-Surgical ---
D/C Lap Instructions-KIDO Reconcile Patient Problems Problems Reviewed?: Yes New, Converted, or Re-Newed RX: RX on Chart Follow Up Appt in 2 weeks Activity as tolerated No driving for 24 hours No driving while on pain medications Incentive Spirometry use every 2 hours while awake Regular Diet Symptoms to Report: Fever over 101 degree F, Nausea/Vomiting Infection Signs and Symptoms to report: Increased redness, Foul odor of wound, Increased drainage Bathing instructions: May shower Operative Area Clean/Dry; Keep incision clean/dry If any problems/questions: Contact your physician or go to Emergency Room CALIXTO SILVER APRN Mar 22, 2020 11:42
[2020-03-22] MEDS ORDERED: LIDOCAINE/EPI 1%-1:100,000 (XYLOCAINE) 50 ML ONE (11:50)
[2020-03-22 12:05] LABS: BASOPHILS # (AUTO) 0.1 10^3/uL (0.0-0.1); BASOPHILS % (AUTO) 1 % (0-10); EOSINOPHILS # (AUTO) 0.4 10^3/uL (0.0-0.3); EOSINOPHILS % (AUTO) 5 % (0-10); HEMATOCRIT 38 % (35-52); HEMOGLOBIN 11.9 g/dL (11.5-16.0); LYMPHOCYTES % (AUTO) 21 % (12-44); MEAN CORPUSCULAR HEMOGLOBIN 26 pg (25-34); MEAN CORPUSCULAR HGB CONC 32 g/dL (32-36); MEAN CORPUSCULAR VOLUME 82 fL (80-99); MEAN PLATELET VOLUME 10.1 fL (9.0-12.2); MONOCYTES # (AUTO) 0.9 10^3/uL (0.0-1.0); MONOCYTES % (AUTO) 10 % (0-12); NEUTROPHILS # (AUTO) 5.9 10^3/uL (1.8-7.8); NEUTROPHILS % (AUTO) 63 % (42-75); PLATELET COUNT 372 10^3/uL (130-400); WHITE BLOOD COUNT 9.4 10^3/uL (4.3-11.0)
[2020-03-22] MEDS ORDERED: NEOSTIGMINE 3 MG/3 ML VIAL ONE (12:41)
[2020-03-22] MEDS ORDERED: GLYCOPYRROLATE 0.2 MG/ML (ROBINUL) 2 ML VIAL ONE (12:41)
--- NOTE | 2020-03-22 12:41 | Progress Note-Post Operative ---
Post-Operative Progess Note Surgeon (s)/Peanut Picker (s) Surgeon DYAN JEAN MD Peanut Picker: susan rojas SHADING PAINTER Pre-Operative Diagnosis sx biliary dyskinesia Post-Operative Diagnosis same Procedure & Operative Findings Date of Procedure 03/22/20 Procedure Performed/Findings laparoscopic cholecystectomy Anesthesia Type get Estimated Blood Loss Estimated blood loss (mL): minimal Specimens/Packing Specimens Removed gallbladder DYAN JEAN MD Mar 22, 2020 12:41
[2020-03-22] MEDS ORDERED: fentaNYL INJECTION 100 MCG/2 ML AMP IVP ONE (13:00)
[2020-03-22] MEDS ORDERED: HYDROmorphone 2 MG/ML VIAL (DILAUDID) IV ONE (13:00)
[2020-03-22] MEDS ORDERED: morphine INJ 10 MG/ML 1ML (SYR OR VIAL) IVP ONE (13:00)
[2020-03-22] MEDS ORDERED: MEPERIDINE (DEMEROL) INJ 50 MG/ML IVP ONE (13:00)
--- NOTE | 2020-03-22 13:00 | Anesthesia-General Post-Op ---
General Patient Condition Mental Status/LOC: Same as Preop Cardiovascular: Satisfactory Nausea/Vomiting: Absent Respiratory: Satisfactory Pain: Controlled Complications: Absent Post Op Complications Complications None Follow Up Care/Instructions Patient Instructions None needed. Anesthesia/Patient Condition Patient Condition Patient is doing well, no complaints, stable vital signs, no apparent adverse anesthesia problems. No complications reported per nursing. CARA BUTLER CRNA Mar 22, 2020 13:00
[2020-03-22] MEDS ORDERED: PROMETHAZINE INJ 25 MG/ML (PHENERGAN) AMP ONE (13:17)
[2020-03-22] MEDS ORDERED: PROMETHAZINE INJ 25 MG/ML (PHENERGAN) AMP IVP ONE (13:30)
--- NOTE | 2020-03-22 17:53 | OPERATIVE REPORT ---
DATE OF SERVICE: 03/22/2020 ATTENDING PRIMARY CARE PHYSICIAN: Tiana Will MD PREOPERATIVE DIAGNOSIS: Symptomatic biliary dyskinesia. POSTOPERATIVE DIAGNOSIS: Symptomatic biliary dyskinesia. PROCEDURE: Laparoscopic cholecystectomy. SURGEON: Dyan Jean MD ADOPTION COORDINATOR: Boogie Carmona APRN. ANESTHESIA: General endotracheal. ESTIMATED BLOOD LOSS: Minimal. FINDINGS: Distended gallbladder. A small cystic duct. DISPOSITION: The patient tolerated the procedure well. INDICATIONS: The patient is a 50-year-old female who has had issues with nausea, abdominal bloating as well as pain in the right upper abdominal quadrant after eating meals for the past six months; however, more recently this has become more severe as well as more frequent. An ultrasound was performed, which did not show any gallstones; however, HIDA scan did show a low ejection fraction of 20% and she did have reproduction of symptoms with the administration of a Kinevac analogue. DESCRIPTION OF PROCEDURE: The patient was brought to the operating room, laid supine on the table. After adequate IV pain and sedative medications and general endotracheal intubation, the abdomen was prepped and draped in standard surgical fashion. A 0.5% Marcaine with epinephrine was used to anesthetize overlying skin left upper abdominal quadrant and a transverse skin incision made using a 15 blade. An 0 silk suture was applied to the medial aspect incision for retraction and a Veress needle inserted with a low opening pressure of 0 mmHg. The abdomen was insufflated to 15 mmHg pressure. The Veress needle removed and a 5 mm XL trocar placed followed by a 5 mm 45-degree angle laparoscope visualizing the peritoneal cavity. A 4-quadrant abdominal exploration was performed. There was a mild liver steatosis and a distended gallbladder, no gallbladder wall thickening. Under direct visualization, we then proceeded to place a supraumbilical 10 mm port after the skin and peritoneal lining were anesthetized using 0.5% Marcaine with epinephrine and a transverse skin incision made using a 15 blade. In a similar manner, a right upper abdominal quadrant 5 mm port was placed. The fundus of the gallbladder was then retracted anteriorly and superiorly and the patient was then placed in reverse Trendelenburg position as well as plane right side up, left side down. The hepatoduodenal ligament was then opened using blunt dissection as well as electrocautery on the hook instrument identifying the critical view of safety including the triangle of Calot as well as the cystic duct and artery as only two structures going into the gallbladder as well as the cystic plate behind the proximal gallbladder. A timeout was then taken and the cystic duct and artery were then clipped proximally, distally and cut with EndoShears. The gallbladder was then dissected off the liver bed using electrocautery with visualization of good hemostasis as well as no leaking ducts of Luschka. The gallbladder was removed through the 10 mm port site using an EndoCatch bag. The 10 mm port site fascia and peritoneum were then closed under direct visualization using a Quinton-Anjana device and 0 Vicryl suture. The abdomen was desufflated and remaining ports removed. All skin incisions were closed using 4-0 Monocryl running subcuticular sutures. Wounds were then cleaned and covered with Dermabond. The patient tolerated the procedure well. We will start IV normal pain medication as well as a clear liquid diet. When she is tolerating clears, has good pain control with oral pain medications, ambulating well, we will discharge her home. She will be instructed to do no heavy lifting or exertion for the next two weeks. Job ID: [id number] DocumentID: [id number] Dictated Date: 03/22/2020 12:52:04 Lead Radiation Therapist Date: 03/22/2020 17:52:46 Dictated By: DYAN JEAN MD
== END 2020-03-22 15:40 | disposition home or self-care (01) ==
LOC: SDC 10:57
PROVIDERS: ATTEND Surgery
DX: K81.1 Chronic cholecystitis (principal); K82.8 Other specified diseases of gallbladder; I10 Essential (primary) hypertension; J45.909 Unspecified asthma, uncomplicated; K21.9 Gastro-esophageal reflux disease without esophagitis; E66.9 Obesity, unspecified; Z68.41 Body mass index [BMI] 40.0-44.9, adult; Z79.899 Other long term (current) drug therapy; Z79.51 Long term (current) use of inhaled steroids; Z87.891 Personal history of nicotine dependence; Z83.3 Family history of diabetes mellitus
CPT/HCPCS: 36415; 84703; 85025; 87081; 88304

== ENCOUNTER → 2021-08-27 | Outpatient (CLI) | payer OTHER ==
[~2021-08-27] MED LIST changes: +HYDR-3817 PO; -LEVO500T80; +LEVO500T81; +SCOP1PAT10 TD; -SCOP1PAT11 TD
--- NOTE | 2021-08-27 13:34 | Diagnostic Imaging Report ---
INDICATION: Routine screening. COMPARISON: 02/10/2020 and 08/21/2017. TECHNIQUE: 2D and 3D bilateral screening mammography was performed with CAD. FINDINGS: Scattered fibroglandular densities are identified bilaterally. The parenchymal pattern is stable. No mass or malignant-appearing microcalcifications are seen. There are benign calcifications present. The axillae are unremarkable. IMPRESSION: No mammographic features suspicious for malignancy are identified. ACR BI-RADS Category 2: Benign findings. Result letter will be mailed to the patient. Note: At least 10% of breast cancer is not imaged by mammography. Dictated by: Dictated on workstation # [id number]
== END ==
LOC: RAD 07:41
PROVIDERS: ATTEND Nurse Practitioner Family
DX: Z12.31 Encounter for screening mammogram for malignant neoplasm of breast (principal)
CPT/HCPCS: 77063; 77067

== ENCOUNTER 2021-09-04 07:30 | Outpatient (RCR) | payer OTHER ==
[2021-08-28] MEDS: FERRIC CARBOXYMALTOSE INJ 750 MG in NS (IVPB) 250 ML IV SCH (13:55)
[2021-08-28 14:39] VITALS: BP 161/67
[~2021-09-04] VITALS: Ht 172.7 cm; Wt 130.9 kg
[2021-09-04] MEDS: FERRIC CARBOXYMALTOSE INJ 750 MG in NS (IVPB) 250 ML IV SCH (07:50)
[2021-09-04 08:02] VITALS: BP 171/79
[2021-09-04 08:21] VITALS: BP 171/79
== END 2021-09-19 | disposition home or self-care (01) ==
LOC: SDC 07:30
PROVIDERS: ATTEND Nurse Practitioner Family
DX: D50.9 Iron deficiency anemia, unspecified (principal)
CPT/HCPCS: 96365

== ENCOUNTER 2021-09-17 21:49 | Emergency (ER) | payer OTHER ==
[~2021-09-17] VITALS: Ht 172.7 cm; Wt 128.4 kg
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
[2021-09-17 22:24] VITALS: BP 176/88
== END 2021-09-17 22:24 | disposition home or self-care (01) ==
LOC: EDUNIT# 21:49 → ER 21:50
DX: M54.2 Cervicalgia (principal); Z98.1 Arthrodesis status
CPT/HCPCS: 99281

== ENCOUNTER 2022-02-05 05:29 | Outpatient (CLI) | payer OTHER ==
[~2022-02-05] VITALS: Ht 172.7 cm; Wt 119.1 kg
[~2022-02-05 05:29] MED LIST changes: +ALBU8.5H6 IH; +LEVO-55; -LEVO500T81; -RT-ALBUINH IH
[2022-02-06] MEDS ORDERED: MAGN100T5 PO (11:35)
[2022-02-06] MEDS ORDERED: NORG1TAB14 PO (11:35)
[2022-02-06] MEDS ORDERED: TIRZ5PEN SQ (11:35)
[2022-02-06] MEDS ORDERED: PROM25TA14 PO (11:35)
[2022-02-06] MEDS ORDERED: RIBO25TA PO (11:35)
[2022-02-06] MEDS ORDERED: ACHD5005 PO (11:35)
[2022-02-06] MEDS ORDERED: PANT40TA52 PO (11:35)
== END 2022-02-06 12:43 | disposition home or self-care (01) ==
LOC: PREOP 05:29
PROVIDERS: ATTEND Obstetrics & Gynecology
DX: Z01.818 Encounter for other preprocedural examination (principal)

== ENCOUNTER 2022-02-12 11:35 | Day surgery (SDC) | payer OTHER ==
[2022-02-12] VITALS (12 sets, daily range): BP systolic 146–209; BP diastolic 61–89
[~2022-02-12] VITALS: Ht 172.7 cm; Wt 119.1 kg
--- NOTE | 2022-02-12 11:26 | Discharge Inst-Surgical ---
Discharge Inst-Surgical Depart Medication/Instructions New, Converted or Re-Newed RX: Transmitted to Pharmacy Consults/Follow Up Patient Instructions: As directed Orders & Referrals Follow Up Appt: Return to clinic in 1 week for suture removal Call to make follow up appt. for patient in 4 weeks. Activity: Rest for 24 hours, than as tolerated. Wound Care: May remove Band-Aid tomorrow. Replace as desired. Keep incisions clean and dry. Wash daily with soap and water. Prescriptions for Percocet Motrin and Colace have been sent to patient's pharmacy electronically. Patient is continue her on home medications but may stop her oral contraceptive Diet: As tolerated shower or tub bathe as desired. No driving for 24 hours, no alcoholic beverages for 24 hours, and nothing per vagina (no tampons, douching, or intercourse) for 8 weeks. Patient to return to the clinic as soon as possible for: Temperature greater than 101F, Severe Pain, Foul discharge from incision or vagina, Excessive Bleeding (more than a period). Activity Activity as Tolerated: No Diet Discharge Diet: No Restrictions ASHA GUZMAN MD Feb 12, 2022 11:26
[~2022-02-12 11:35] MED LIST changes: +ACHD5005 PO; +DOCU-143 PO; +IBUP-1780 PO; +MAGN100T5 PO; +NORG1TAB14 PO; +OXYC-199 PO; +PROM25TA14 PO; +RIBO25TA PO; +TIRZ5PEN SQ
[2022-02-12] MEDS ORDERED: ceFAZolin INJECTION 1,000 MG in NS (IVPB) 50 ML IV ONE (12:15)
[2022-02-12 12:21] LABS: BASOPHILS # (AUTO) 0.1 10^3/uL (0.0-0.1); BASOPHILS % (AUTO) 1 % (0-10); EOSINOPHILS # (AUTO) 0.3 10^3/uL (0.0-0.3); EOSINOPHILS % (AUTO) 3 % (0-10); HEMATOCRIT 43 % (35-52); HEMOGLOBIN 14.5 g/dL (11.5-16.0); LYMPHOCYTES % (AUTO) 20 % (12-44); MEAN CORPUSCULAR HEMOGLOBIN 30 pg (25-34); MEAN CORPUSCULAR HGB CONC 34 g/dL (32-36); MEAN CORPUSCULAR VOLUME 90 fL (80-99); MEAN PLATELET VOLUME 10.2 fL (9.0-12.2); MONOCYTES # (AUTO) 0.9 10^3/uL (0.0-1.0); MONOCYTES % (AUTO) 9 % (0-12); NEUTROPHILS # (AUTO) 6.9 10^3/uL (1.8-7.8); NEUTROPHILS % (AUTO) 67 % (42-75); PLATELET COUNT 339 10^3/uL (130-400); WHITE BLOOD COUNT 10.3 10^3/uL (4.3-11.0)
[2022-02-12] MEDS: LACTATED RINGERS 1,000 ML IV PRN ×3 (12:24→15:28)
[2022-02-12] MEDS ORDERED: SEVOFLURANE (ULTANE) 15 ML INHAL SOLN ONE ×3 (12:47→15:16)
[2022-02-12] MEDS ORDERED: ROCURONIUM 10 MG/ML 5 ML SYRINGE IV ONE ×2 (12:47→14:45)
[2022-02-12] MEDS ORDERED: fentaNYL INJ 100 MCG/2 ML AMP ONE (12:47)
[2022-02-12] MEDS ORDERED: MIDAZOLAM 2 MG/2 ML (VERSED) VIAL ONE (12:47)
[2022-02-12] MEDS ORDERED: ONDANSETRON 4 MG/2 ML (SDV) Z0FRAN ONE (12:47)
[2022-02-12] MEDS ORDERED: proPOfol 200 MG/20 ML (DIPRIVAN) VIAL IV ONE (12:47)
[2022-02-12] MEDS ORDERED: LIDOCAINE PF 2% 5 ML (XYLOCAINE) VIAL ONE (12:47)
[2022-02-12] MEDS: BUP/EPI 0.25% 1:200,000 (MARCAINE) 30 ML VIAL ONE ×2 (13:40→13:45)
[2022-02-12] MEDS ORDERED: morphine PF (DURAMORPH) 10 MG/10 ML AMP ONE (13:58)
[2022-02-12] MEDS ORDERED: HYDROmorphone 2 MG/ML VIAL (DILAUDID) ONE (13:59)
[2022-02-12] MEDS ORDERED: METHYLENE BLUE 0.5% (PROVAYBLUE) 50 mg/10 ml vial IV ONE (14:15)
[2022-02-12] MEDS ORDERED: D5 LR IV SOLUTION 1,000 ML IV SCH (14:30)
[2022-02-12] MEDS ORDERED: MEPERIDINE (DEMEROL) INJ 100 MG/ML IM PRN (14:30)
[2022-02-12] MEDS ORDERED: ESTROGENS CONJ INJECTION 25 MG in WATER (STERILE) FOR INJECTION 5 ML IV ONE (14:30)
[2022-02-12] MEDS ORDERED: PROMETHAZINE INJ 25 MG/ML (PHENERGAN) AMP IM PRN (14:30)
[2022-02-12] MEDS ORDERED: ONDANSETRON 4 MG/2 ML (SDV) Z0FRAN IVP PRN ×2 (14:30→15:45)
[2022-02-12] MEDS ORDERED: NEOSTIGMINE (BLOXIVERZ ) 1 MG/1ML 10 ML VIAL ONE (15:12)
[2022-02-12] MEDS ORDERED: GLYCOPYRROLATE 0.2 MG/ML (ROBINUL) 2 ML VIAL ONE (15:12)
[2022-02-12] MEDS ORDERED: KETOROLAC 30 MG/ML VIAL ONE (15:26)
[2022-02-12] MEDS ORDERED: fentaNYL INJ 100 MCG/2 ML AMP IVP ONE (15:45)
[2022-02-12] MEDS ORDERED: morphine INJ 10 MG/ML 1ML (SYR OR VIAL) IVP ONE (15:45)
[2022-02-12] MEDS ORDERED: HYDROmorphone 2 MG/ML VIAL (DILAUDID) IV ONE (15:45)
[2022-02-12] MEDS ORDERED: PROMETHAZINE INJ 25 MG/ML (PHENERGAN) AMP IVP ONE (15:45)
[2022-02-12] MEDS ORDERED: morphine INJ 10 MG/ML 1ML (SYR OR VIAL) ONE (15:55)
[2022-02-12] MEDS ORDERED: MEPERIDINE (DEMEROL) INJ 100 MG/ML IM ONE (19:45)
[2022-02-12] MEDS: KETOROLAC 30 MG/ML VIAL IV SCH (20:45)
[2022-02-13] MEDS ORDERED: oxyCODONE/APAP 5/325MG (PERCOCET 5) TABLET ONE (00:19)
[2022-02-13 00:20] VITALS: BP 176/73
[2022-02-13 00:22] VITALS: BP 178/62
[2022-02-13] MEDS: oxyCODONE/APAP 5/325MG (PERCOCET 5) TABLET PO PRN ×3 (00:23→09:04)
[2022-02-13] MEDS: KETOROLAC 30 MG/ML VIAL IV SCH ×2 (03:10→09:05)
[2022-02-13 04:03] VITALS: BP 151/65
--- NOTE | 2022-02-13 05:21 | OPERATIVE REPORT ---
DATE OF SERVICE: 02/12/2022 PREOPERATIVE DIAGNOSES: Menorrhagia, menometrorrhagia, pelvic pain. POSTOPERATIVE DIAGNOSES: Menorrhagia, menometrorrhagia, pelvic pain with extensive abdominal pelvic adhesions. OPERATIVE PROCEDURES: Total laparoscopic hysterectomy with bilateral salpingectomies as well as extensive adhesiolysis and cystoscopy. DESCRIPTION OF PROCEDURE: With the patient in supine position, under satisfactory general anesthesia, she was repositioned in the dorsal lithotomy position in the [facility] and prepped and draped in the usual fashion for abdominal and vaginal surgery using da Chapin assistance. Weighted speculum was placed in the posterior fornix of the vagina, cervix exposed and grasped anteriorly with single tooth tenaculum. The uterus was sounded to 12 cm with uterine sound. The cervix was then serially dilated with Henry dilators to accommodate a EDENILSON II manipulator was placed using a 6 mm x 10 cm uterine probe and a 25 mm colpotomy ring. Suture of #1 Vicryl placed at 3 and 9 o'clock position of the cervix to affix the uterus to the manipulator. The tenaculum and speculum were removed after Salazar catheter was placed to dependent drainage and the patient was then brought into low dorsal lithotomy position. The abdomen was exposed. A 12 mm incision was made about 20 cm superior to the umbilicus. Veress needle was placed through that incision into the abdominal cavity and correct placement confirmed with water drop test. The abdomen was insufflated with 2.4 liters of carbon dioxide. A 5 mm incision was now made in the patient's left upper quadrant near Lawton's point and a 5 mm Optiview laparoscopic port was placed under direct vision. The abdominal wall was transilluminated and ports of 8 mm were placed 8 cm lateral to the umbilicus and a 12 mm port was placed in the supraumbilical midline incision. The patient was placed in Trendelenburg allowing the bowel swept out of the pelvis. The da Chapin column was advanced on the patient and docked. Operative instruments were placed in the right and left lateral portion. I retired to the da Chapin console. At the console, using a monopolar shear on the right and a bipolar fenestrated grasper on the left. The pelvis was first examined. The abdomen was examined. There were extensive adhesions of the omentum to the anterior abdominal wall, obscuring any view of the pelvis. Using monopolar shear on the left, these adhesions were carefully and meticulously lysed sharply and with electrocautery until the entire abdominal wall was exposed. The adhesions extended from about mid abdominal wall all the way down to the pelvis. Once omentum was freed, it was allowed followed by the pelvis and then it was evident that the uterus was densely adherent to the abdominal wall as well. There were adhesions of sigmoid and sigmoid colon to the left pelvic brim obscuring view of the left tube and ovary. Laparoscope was rotated. The appendix could not be identified. There were adhesions in the pericolic gutter on the right and the cecum and appendix were not identified. Attention was brought back to the pelvis. The adhesions to the left pelvic brim obstructing access to the left ovary and tube were very carefully and meticulously dissected free eventually exposing the entire left pelvis. The left tube mesosalpinx was clamped, cauterized, and divided using the vessel sealer. This was continued over to the utero-ovarian pedicle was clamped, cauterized, and divided with the same device as well. Dissection was carried down on to the round ligament and started on to the broad ligament, thus allowing for removal of the left fallopian tube eventually and with conservation of the left ovary. Attention was then turned to the right. Fallopian tube was grasped and elevated. The mesosalpinx was clamped, cauterized, and divided in the same manner as on the right. This eventually allowed for conservation of the right ovary. The dissection carried as well as feasible considering the extensive adhesions of the anterior surface of the uterus to the abdominal wall. Attention was now turned to lysing those adhesions. Very careful meticulous dissection was employed using the vessel sealer as well as the monopolar bryce and a bipolar was fenestrated with grasper until the anterior surface of the uterus was exposed all the way down to the lower uterine segment and down onto the anterior vaginal wall. The bladder was carefully dissected free of the uterus and the uterus was carefully dissected free of the abdominal wall and abdominal bladder. With the uterus completely freed and the lower uterine segment and cervix exposed, the vessel sealer was used to complete the dissection down the broad ligament and onto the cardinal ligament on each side. Then, using a monopolar shear, the colpotomy incision was started at 12 o'clock position on the cervix as we continued circumferentially until the entire colpotomy ring was exposed and then the uterus was extracted through the vagina with the fallopian tubes attached. This was done with some difficulty as the uterus was relatively large and bulky. Eventually with the uterus removed, the vaginal cuff was closed with a running suture using V-Loc barbed suture starting from the right angle continuing almost to the left and then using a second suture to complete the closure on to the left angle of the vagina. Care was taken to ensure inclusion of the uterine vessel pedicles bilaterally. The pelvis was irrigated and a small amount of blood was evacuated out. The cuff was examined for hemostasis that being complete. No remaining abnormal pathology. The procedure was terminated. The operative instruments were removed under direct vision as were the ports. The abdomen was evacuated of the insufflating gas. The skin incisions were closed with nylon interrupted sutures and the fascia at the supraumbilical incision was closed with a pkddxb-jr-ahtft suture of 2-0 Vicryl. Cystoscopy was now performed using a 70-degree cystoscope with LR as distending medium. The bladder wall was examined and found to be completely intact. Both ureteral orifices were identified and both were effluxing urine freely. With the bladder integrity confirmed and the function of the ureters confirmed, the procedure was now complete and terminated the operative instruments were all removed. The speculum was replaced in the vagina and the vaginal cuff examined. It was completely reapproximated and completely hemostatic. Sponge and needle counts were correct. Hemostasis was complete. Blood loss was minimal. The patient was now uneventfully awakened from her general anesthesia and transferred to the recovery room in stable condition. Job ID: [id number] DocumentID: [id number] Dictated Date: 02/12/2022 17:34:36 Cracker Dough Mixer Date: 02/13/2022 05:19:00 Dictated By: ASHA GUZMAN MD
[2022-02-13 09:00] VITALS: BP 177/74
[2022-02-13] MEDS ORDERED: DOCUSATE SODIUM 100 MG (COLACE) CAP PO SCH (09:00)
--- NOTE | 2022-02-13 15:45 | Anesthesia-General Post-Op ---
General Patient Condition Mental Status/LOC: Same as Preop Cardiovascular: Satisfactory Nausea/Vomiting: Absent Respiratory: Satisfactory Pain: Controlled Complications: Absent Post Op Complications Complications None Follow Up Care/Instructions Patient Instructions None needed. Anesthesia/Patient Condition Patient Condition Patient discharged prior to in person post op visit. Chart reviewed. stable vital signs, no apparent adverse anesthesia problems. No complications reported per nursing. LITZY WILEY CRNA Feb 13, 2022 15:45
[2022-02-13] MEDS ORDERED: IBUPROFEN 800 MG (MOTRIN) TAB PO SCH (16:30)
--- NOTE | 2022-02-14 09:26 | Progress Note ---
Standard Progress Note Progress Notes/Assess & Plan Date Seen by a Provider: Feb 13, 2022 Time Seen by a Provider: 09:25 Progress/Assessment & Plan This patient is without complaint. She did have some issues with pain initially after surgery but that has now been resolved. Patient denies discharge, she denies shortness of breath, she denies headache, she denies nausea vomiting. Patient does have good pain control she is ambulating she is voiding she is tolerating p.o. well she is requesting discharge home. VS - Last 72 Hours, by Label 02/12/22 02/12/22 02/12/22 02/12/22 12:15 15:18 15:18 15:30 Temp 36.2 36.4 Pulse 68 Resp 18 15 B/P (MAP) 159/79 (105) 146/61 (89) Pulse Ox 98 96 O2 Delivery Room Air OxyMask OxyMask OxyMask O2 Flow Rate 8 8 8 02/12/22 02/12/22 02/12/22 02/12/22 15:30 15:40 15:45 15:50 Resp 12 20 20 B/P (MAP) 156/71 (99) 149/75 (99) 158/69 (98) Pulse Ox 100 100 100 O2 Delivery OxyMask OxyMask OxyMask OxyMask O2 Flow Rate 8 8 8 4.00 02/12/22 02/12/22 02/12/22 02/12/22 16:00 16:00 16:10 16:15 Temp 36.7 Resp 18 18 B/P (MAP) 163/75 (104) 175/79 (111) Pulse Ox 99 99 O2 Delivery OxyMask Room Air Room Air Room Air O2 Flow Rate 4.00 02/12/22 02/12/22 02/12/22 02/12/22 16:30 17:45 19:45 20:45 Temp 36.0 36.5 Pulse 68 63 Resp 18 18 B/P (MAP) 150/65 (93) 180/70 (106) 209/89 (129) Pulse Ox 98 98 96 O2 Delivery Room Air Room Air Room Air Room Air 02/12/22 02/12/22 02/13/22 02/13/22 20:45 22:10 00:20 00:22 Temp 36.3 37.3 Pulse 75 71 71 Resp 20 18 16 B/P (MAP) 186/77 (113) 188/81 (116) 176/73 (107) 178/62 (100) Pulse Ox 96 97 94 O2 Delivery Room Air Room Air Room Air 02/13/22 02/13/22 04:03 09:00 Temp 36.6 37.4 Pulse 62 60 Resp 18 18 B/P (MAP) 151/65 (93) 177/74 (108) Pulse Ox 96 97 O2 Delivery Room Air Room Air Vital signs are stable. Patient is afebrile. The abdomen is benign Streaming show no clubbing or cyanosis. There is no Homans' sign. Pelvic exam was deferred Postoperative day #1 status post total laparoscopic hysterectomy with bilateral salpingectomies as well as extensive Adhesiolysis and cystoscopy Patient is doing well and will be discharged home with follow-up in clinic This was a late entry for this patient who was seen on February 13, 2022 ASHA GUZMAN MD Feb 14, 2022 09:26
== END 2022-02-13 10:20 | disposition home or self-care (01) ==
LOC: SDC 11:35 → WS 16:28 → SDC 02-13 10:20
PROVIDERS: ATTEND Obstetrics & Gynecology
DX: N80.03 Adenomyosis of the uterus (principal); N83.8 Other noninflammatory disorders of ovary, fallopian tube and broad ligament; K66.0 Peritoneal adhesions (postprocedural) (postinfection); K21.9 Gastro-esophageal reflux disease without esophagitis; E66.01 Morbid (severe) obesity due to excess calories; F17.210 Nicotine dependence, cigarettes, uncomplicated; Z68.39 Body mass index [BMI] 39.0-39.9, adult; Z79.899 Other long term (current) drug therapy
CPT/HCPCS: 36415; 84703; 85025; 87081; 88307

== ENCOUNTER → 2022-06-18 | Outpatient (CLI) | payer OTHER ==
--- NOTE | 2022-06-18 12:57 | Diagnostic Imaging Report ---
INDICATION: Elbow pain EXAMINATION: Right elbow 06/18/2022 FINDINGS: 3 views of the elbow. There are no fractures or dislocations. Well corticated rounded density adjacent to the medial epicondyle is noted chronic in appearance. There is a small osseous fragment adjacent to the coronoid process which appears chronic. No joint effusion. IMPRESSION: 1. Findings described above appear chronic with no acute osseous abnormality appreciated. Dictated by: Dictated on workstation # [id number]
== END ==
LOC: ORTHO 11:02
PROVIDERS: ATTEND Orthopaedic Surgery
DX: M25.521 Pain in right elbow (principal)
CPT/HCPCS: 20551; 73080; G0463

== ENCOUNTER → 2023-01-21 | Outpatient (CLI) | payer OTHER ==
[~2023-01-21] MED LIST changes: -MECL-149 PO; +MECL-291 PO
--- NOTE | 2023-01-21 11:41 | Diagnostic Imaging Report ---
INDICATION: Routine screening. COMPARISON: 08/27/2021 and 02/10/2020. TECHNIQUE: 2D and 3D bilateral screening mammography was performed with CAD. FINDINGS: Both breasts are heterogeneously dense, limiting the sensitivity of mammography. There are benign calcifications bilaterally. No mass or malignant-appearing microcalcifications are seen. The axillae are unremarkable. IMPRESSION: No mammographic features suspicious for malignancy are identified. ACR BI-RADS Category 2: Benign findings. Result letter will be mailed to the patient. Note: At least 10% of breast cancer is not imaged by mammography. Dictated by: Dictated on workstation # [id number]
--- NOTE | 2023-01-21 15:51 | Diagnostic Imaging Report ---
HISTORY: Thyroid nodules TECHNIQUE: Ultrasound of the thyroid and neck soft tissues. COMPARISON: None FINDINGS: The right thyroid lobe measures 4.4 x 2.0 x 1.4 cm. Echogenicity is heterogeneous. Vascularity appears normal. There is a small calcification measuring 3 mm. The left thyroid lobe measures 4.2 x 1.4 x 1.8 cm. Echogenicity is mildly heterogeneous and vascularity is normal. In the left thyroid there is an isoechoic solid 2.1 cm nodule. The isthmus measures 5 mm and is otherwise unremarkable. IMPRESSION: 1. 2.1 cm TI-RADS 3 nodule in the left thyroid. Recommend followup ultrasound in one year. Dictated by: Dictated on workstation # [id number]
== END ==
LOC: RAD 10:02
PROVIDERS: ATTEND Family Medicine
DX: Z12.31 Encounter for screening mammogram for malignant neoplasm of breast (principal); E04.1 Nontoxic single thyroid nodule
CPT/HCPCS: 76536; 77063; 77067

== ENCOUNTER → 2023-02-02 | Outpatient (CLI) | payer OTHER ==
--- NOTE | 2023-02-02 17:34 | Diagnostic Imaging Report ---
PROCEDURE: CT abdomen and pelvis without contrast. TECHNIQUE: Multiple contiguous axial images were obtained through the abdomen and pelvis without the use of intravenous contrast. Auto Exposure Controls were utilized during the CT exam to meet ALARA standards for radiation dose reduction. INDICATION: Right flank pain, microhematuria COMPARISON: None available FINDINGS: The visualized lung bases are clear. Cholecystectomy. The unenhanced liver, spleen, adrenal glands, and pancreas are unremarkable. The right kidney and right ureter are unremarkable. The unenhanced left kidney and left ureter are unremarkable. Small phleboliths are present in lower pelvis. Minimal vascular calcifications without aneurysmal dilatation of the abdominal aorta. Prior appendectomy. The uterus is not visualized, likely surgically absent. No abnormal adnexal mass lesion. Minimal colonic diverticulosis without CT evidence of diverticulitis. No bowel obstruction or pneumatosis. No significant adenopathy, free air, or free fluid in abdomen or pelvis. Mild scattered osseous degenerative changes without acute osseous abnormality. IMPRESSION: No acute abnormality. Cholecystectomy, appendectomy, and hysterectomy. Minimal colonic diverticulosis without CT evidence of diverticulitis. Dictated by: Dictated on workstation # [id number]
== END ==
LOC: RAD 09:27
PROVIDERS: ATTEND Family Medicine
DX: R10.9 Unspecified abdominal pain (principal); R31.9 Hematuria, unspecified; M54.50 Low back pain, unspecified; Z90.49 Acquired absence of other specified parts of digestive tract; Z90.710 Acquired absence of both cervix and uterus; Z90.89 Acquired absence of other organs
CPT/HCPCS: 74176

== ENCOUNTER → 2023-02-10 | Outpatient (CLI) | payer OTHER | LOC: ORTHO 11:10 | PROVIDERS: ATTEND Orthopaedic Surgery | DX: M77.11 Lateral epicondylitis, right elbow (principal) | CPT/HCPCS: 20610; G0463; 99213 ==